=== PATIENT | male | born 1970 | race Caucasian/White ===

== ENCOUNTER 2019-12-11 12:25 | Emergency (ER) | payer OTHER, SELFPAY ==
--- NOTE | ~2019-12-11 | XR_ITS ---
XR shoulder LT min 2V DATE: 12/11/2019 13:48 INDICATION: Injury. Anterior left shoulder pain. TECHNIQUE: 4 views COMPARISON: 03/04/2016 left shoulder FINDINGS: No fracture or dislocation, periosteal reaction or bone destruction or abnormal soft tissue calcification. Normal alignment at the left acromioclavicular and glenohumeral joints. IMPRESSION: Negative Reviewed, dictated and finalized at location A. IMPRESSION: Negative
[2019-12-11 12:32] VITALS: BP 154/84; PULSE 102; RESP 16; TEMP 36.6; O2SAT 98
--- NOTE | 2019-12-11 12:58 | ED.UPPEXIN ---
HPI - Extremity Injury (Upper) General Chief Complaint: Extremity Injury, Upper Stated Complaint: hurt my shoulder Time Seen by Provider: 12/11/19 12:54 Source: patient Mode of arrival: ambulatory Limitations: no limitations History of Present Illness HPI narrative: Patient is a 49-year-old male who presents for evaluation of left shoulder pain. Patient states he was changing out some wires when he pulled, and felt a popping sensation in his left shoulder. Pain was immediate in the left shoulder, sharp, shooting in nature. Patient denies numbness. He reports pain with movement to the side. No bruising. He denies hand numbness. Patient is right-hand dominant. Patient has a history of left shoulder rotator cuff injury in the past which she did physical therapy for. Patient states injury feels similar. Related Data Allergies Allergy/AdvReac Type Severity Reaction Status Date / Time No Known Allergies Allergy Verified 12/11/19 12:41 Review of Systems Review of Systems: Narrative: CONSTITUTIONAL: Denies fever CARDIOVASCULAR: Denies chest pain RESPIRATORY: Denies cough or dyspnea. GASTROINTESTINAL: Denies abdominal pain SKIN: Denies rash MUSCULOSKELETAL: Denies back pain, reports left shoulder pain NEUROLOGIC: Denies headache [facility] Past Medical History Medical History (Updated 12/11/19 @ 14:10 by Danuta Duenas MD) Diabetes Injury of left rotator cuff Family History Family History (Updated 02/12/16 @ 13:08 by DOCTOR UNKNOWN) Other Diabetes mellitus Family history of cardiovascular disease Social History Social History Smoking status: Never smoker Alcohol intake: current Gender identity (if verbalized by the patient): Male Exam Narrative: Exam Narrative: GENERAL: Awake, alert, conversant HEAD: Normocephalic, atraumatic. EYES: PERRLA and EOMI. ENT: Nares clear, no rhinorrhea or epistaxis. Mucous membranes moist. NECK: Supple. CHEST: No respiratory distress, breathing even and non labored HEART: Regular rate, sinus rhythm ABDOMEN:Non distended, non tender EXTREMITIES: Intact sensation over the left deltoid. No tenderness over the clavicle or trapezius. No deformity or squaring off of the shoulder. Patient with pain with abduction. Patient with active abduction to 45 degrees. Radial pulse 2+. Intact sensation median, ulnar, radial nerve distribution. Full flexion and extension of the left shoulder. SKIN: Warm, dry, no rash. NEURO:No focal deficits. Alert and oriented x3 Course Vital Signs Vital signs: Vital Signs Temperature 36.6 C 12/11/19 12:32 Pulse Rate 102 H 12/11/19 12:32 Respiratory Rate 16 12/11/19 12:32 Blood Pressure 154/84 H 12/11/19 12:32 Pulse Oximetry 98 12/11/19 12:32 Temperature 36.6 C 12/11/19 12:32 Pulse Rate 102 H 12/11/19 12:32 Respiratory Rate 16 12/11/19 12:32 Blood Pressure 154/84 H 12/11/19 12:32 Pulse Oximetry 98 12/11/19 12:32 MDM - Extremity Injury (Upper) MDM Narrative Medical decision making narrative: Patient with injury to the left shoulder, pain after working with some wires outside to get some tension, felt a popping sensation in his shoulder. Presented neurovascularly intact. Pain with active abduction. No osseous injury on imaging. Patient most likely with recurrent rotator cuff injury. Advised active range of motion exercises, ibuprofen, Tylenol, primary care physician as well as orthopedic follow-up, he may require physical therapy referral. Patient then discharged home. Differential Diagnosis Differential diagnosis: Likely dislocation of shoulder and other (Rotator cuff injury) Imaging Data Radiologist's impression: ITS Impressions Shoulder X-Ray 12/11/19 13:51 IMPRESSION: Negative Discharge Plan Discharge Clinical Impression: Left shoulder strain Qualifiers: Encounter type: initial encounter Qualified Code(s): S46.912A - S
[2019-12-11] MEDS: ACETAMINOPHEN 500 MG TABLET 1000 MG PO (13:39)
[2019-12-11] MEDS: KETOROLAC (*BKC) 60 MG/2 ML VIAL 30 MG IM (13:39)
== END 2019-12-11 14:29 | disposition home or self-care (01) ==
PROVIDERS: Emergency Provider Emergency Medicine
DX: S46.912A Strain of unspecified muscle, fascia and tendon at shoulder and upper arm level, left arm, initial encounter (principal); E11.9 Type 2 diabetes mellitus without complications; X50.9XXA Other and unspecified overexertion or strenuous movements or postures, initial encounter
CPT/HCPCS: 73030; 96372; 99283; A9270; J1885

== ENCOUNTER 2019-12-26 16:30 | Outpatient (CLI) | payer OTHER, SELFPAY ==
--- NOTE | ~2019-12-26 | MR_ITS ---
EXAMINATION: MR shoulder LT wo con DATE: 12/26/2019 17:28 INDICATION: Left shoulder pain. TECHNIQUE: Magnetic resonance imaging (MRI) of the left shoulder was performed without intravenous co ntrast. Sequences included axial PD-weighted FS FSE, coronal oblique PD-weighted FS FSE and T2-weight ed FS FSE, and sagittal oblique T2-weighted FS FSE and T1-weighted FSE. COMPARISON: Left shoulder radiographs 12/11/2019 FINDINGS: Coracoacromial arch: The acromion undersurface is curved in morphology (type II). There is moderate acromioclavicular join t osteoarthritis including inferiorly directed osteophytes. There is mild subacromial/subdeltoid burs itis. Rotator cuff: There is an interstitial tear of supraspinatus tendon at its distal insertion measuring 7 mm anterior to posterior by 4 mm proximal to distal by 40% tendon thickness. There is an articular-sided partial -thickness tear of infraspinatus tendon measuring 7 mm anterior to posterior by 3.0 cm proximal to di stal by 20% tendon thickness. Teres minor tendon is normal. There is mild subscapularis tendinopathy. There is no asymmetric fatty atrophy of the rotator cuff muscle bellies. Biceps tendon and glenoid labrum: Biceps tendon is in bicipital groove. Intra-articular biceps tendon is normal. There is a tear of sup erior labrum from 10:00 to 12:00 (SLAP tear). Fluid: There is no glenohumeral joint effusion. Bones/cartilage: Glenoid cartilage is normal. Humeral head cartilage is normal. IMPRESSION: 1. Partial-thickness tears of supraspinatus and infraspinatus tendons. 2. SLAP tear. 3. Moderate acromioclavicular joint osteoarthritis. Reviewed, dictated and finalized at location B.
== END 2019-12-26 16:31 | disposition home or self-care (01) ==
PROVIDERS: PCP Orthopaedic Surgery; Visit Provider Orthopaedic Surgery
DX: M19.012 Primary osteoarthritis, left shoulder (principal); S43.432A Superior glenoid labrum lesion of left shoulder, initial encounter; X58.XXXA Exposure to other specified factors, initial encounter
CPT/HCPCS: 73221

== ENCOUNTER 2023-06-23 08:22 | Inpatient (IN) | payer OTHER, SELFPAY ==
--- NOTE | ~2023-06-23 | US_ITS ---
EXAMINATION: US arterial ankle brachial ind DATE: 06/24/2023 14:55 INDICATION: Claudication. Foot ulcer. TECHNIQUE: Segmental pressures and plethysmographic and Doppler waveforms of the brachial and lower e xtremity arteries were obtained. COMPARISON: None. FINDINGS: Right and left brachial artery pressures of 136 mm Hg and 139 mm Hg, respectively, are concordant (no rmal difference <= 30 mmHg). The right ankle-brachial index (SRINIVASAN) is 1.13 (normal >= 0.9-1.0). The right great toe-brachial index (TBI) is 0.70 (normal >= 0.65). Arterial Doppler waveforms are biphasic in posterior tibial artery an d triphasic in dorsalis pedis. The left SRINIVASAN is 1.11. The left TBI is 0.57. Arterial Doppler waveforms are triphasic in posterior tib ial artery and biphasic in dorsalis pedis. IMPRESSION: 1. Mildly decreased left TBI and normal left SRINIVASAN, consistent with left-sided arterial occlusive disea se. Reviewed, dictated and finalized at location E. TITY MANAGEMENT DEVELOPER IMPRESSION: 1. Mildly decreased left TBI and normal left SRINIVASAN, consistent with left-sided ar terial occlusive disease.
--- NOTE | ~2023-06-23 | XR_ITS ---
EXAMINATION: XR toe 2nd LT min 2V INDICATION: Infection and ulceration of the left second toe TECHNIQUE: Three views of the left second toe are obtained. COMPARISON: None available FINDINGS: There is soft tissue ulceration at the dorsal aspect of the second toe. There is soft tissu e swelling of the second toe. Osteopenia and mild fragmentation are noted in the tuft of the second d istal phalanx. There is mild osteoarthritis of multiple interphalangeal joints.. IMPRESSION: 1. Soft tissue ulceration of the second toe with findings consistent with osteomyelitis of the second distal phalanx. Reviewed, dictated and finalized at location B. ALLMENT DEALER IMPRESSION: 1. Soft tissue ulceration of the second toe with findings consistent with osteo myelitis of the second distal phalanx.
[2023-06-23 08:29] VITALS: BP 157/62; PULSE 92; RESP 16; O2SAT 99
--- NOTE | 2023-06-23 08:38 | ED.EXTPRO ---
HPI - Extremity Problem General Chief complaint: Extremity Problem,Nontraumatic Stated complaint: L FOOT SWELLING/PAIN Time Seen by Provider: 06/23/23 08:31 History of Present Illness HPI Narrative: Patient is a 52-year-old male who presents the ER with infection to the left 2nd toe. He removed a fungal toenail from the toe 3 days ago. He then started developing redness and swelling of the foot over last couple days and has some streaking towards ankle. No fevers or chills or sweats. He is diabetic and has peripheral neuropathy. He has not noted any drainage. Related Data Home Medications Medication Instructions Recorded Confirmed atorvastatin 40 mg tablet 40 mg PO DAILY 06/23/23 06/23/23 empagliflozin 25 mg tablet 25 mg PO DAILY 06/23/23 06/23/23 (Jardiance) gabapentin 600 mg tablet 600 mg PO HS 06/23/23 06/23/23 lisinopril 10 mg tablet 10 mg PO DAILY 06/23/23 06/23/23 metformin 1,000 mg tablet 1,000 mg PO BID 06/23/23 06/23/23 omeprazole 40 mg capsule,delayed 40 mg PO AC 06/23/23 06/23/23 release tirzepatide 15 mg/0.5 mL 15 mg subcut WEEKLY 06/23/23 06/23/23 subcutaneous pen injector (Paulinounsarahro) Allergies Allergy/AdvReac Type Severity Reaction Status Date / Time No Known Allergies Allergy Verified 06/23/23 08:38 Review of Systems Review of Systems: All systems reviewed & are unremarkable except as noted in HPI and below Constitutional: Constitutional: Denies chills, Denies fatigue and Denies fever(s) ENT: Reports system reviewed and no additional complaints, except as documented Cardiovascular: Cardiovascular: Reports no additional cardiovascular complaints Respiratory: Respiratory: Reports no additional respiratory complaints Gastrointestinal: Gastrointestinal: Reports no additional gastrointestinal complaints Musculoskeletal: Musculoskeletal: Denies arthralgias and Denies joint swelling Comments: Swollen left 2nd toe Integumentary/Breasts: Skin/Breast: Denies pruritus, Reports erythema and Denies rash PMFSH Past Medical History Medical History (Updated 06/23/23 @ 18:45 by Je Gaytan MD) Diabetic peripheral neuropathy Hyperlipidemia Hypertension Tobacco dependence Type 2 diabetes mellitus Family History Family History Other Diabetes mellitus Family history of cardiovascular disease Heart disease Hypertension Social History Social History (Updated 06/23/23 @ 13:31 by Yasemin Avalos PA-C) Social History: Surrogate medical decision maker: Mallory Marin, spouse. Code status: Full code. Smoking status: Current some day smoker Tobacco type: cigarettes Alcohol intake: never Substance use: never Do You Feel Safe in your Home?: Yes Lack of Transportation: No Lack of Food: Never True Current Housing: I Have Housing Concerned About Future Housing: No Difficulty Paying Gas/Electric Bills: No Difficulty Paying for Meds: No Currently Unemployed: No Education: Associate Degree Difficulty w/ Childcare or Family Care: No Living arrangements: with family Occupation/Education: occupation Spiritual care concerns: No Exam Narrative: GENERAL: Well-appearing, well-nourished, and in no acute distress. HEAD: Normocephalic, atraumatic. ENT: Mucous membranes moist. CHEST: Clear to auscultation. No respiratory distress. HEART: Regular rate and rhythm. Normal peripheral pulses. EXTREMITIES: Normal range of motion. No edema. SKIN: Warm, dry. cellulitis to the 2nd digit left foot with streaking over the dorsal aspect of the foot towards the ankle. There is a scabbed over area that may represent early dry gangrene. There is no purulent drainage. NEURO: Alert and oriented x3. PSYCH: Normal mood and affect. Course Course Emergency Course: Admit to hospitalist service for diabetic ulcer and osteomyelitis. IV antibiotics ordered. Accepted by hospitalist service.
[2023-06-23 09:13] LABS: Basophils Absolute Auto 0.1 K/mm3 (0.0-0.1); Basophils Percent Auto 0.4 % (0.2-1.2); Eosinophils Absolute Auto 0.2 K/mm3 (0-0.3); Eosinophils Percent Auto 1.7 % (0-4.4); Hematocrit 44.6 % (42.0-52.0); Hemoglobin 14.3 g/dL (14.0-18.0); Immature Granulocyte Absolute 0.06 K/mm3 (0.00-0.031); Immature Granulocyte Percent A 0.5 % (0-0.5); Lymphocytes Absolute Auto 1.98 K/mm3 (0.9-3.2); Lymphocytes Percent Auto 16.5 % (18.3-44.2); Mean Corpuscular HGB Conc 32.1 g/dl (32-36); Mean Corpuscular Hemoglobin 30.4 pg (26-34); Mean Corpuscular Volume 94.7 fl (80-100); Mean Platelet Volume 11.3 fl (7.4-10.4); Monocytes Absolute Auto 1.3 K/mm3 (0.1-0.6); Neutrophils Absolute Auto 8.4 K/mm3 (1.3-6.7); Neutrophils Percent Auto 69.9 % (45.5-73.1); Platelet Count Result 230 k/mm3 (150-375); Red Blood Count 4.71 M/mm3 (4.6-6.20); Red Cell Distribution Width 13.1 % (11.5-14.5)
[2023-06-23 09:28] LABS: Alanine Aminotransferase 28 U/L (6-50); Albumin Level 4.2 g/dL (3.5-5.1); Alkaline Phosphatase 139 U/L (38-126); Anion Gap 8 mmol/L (8-16); Aspartate Amino Transferase 31 U/L (17-59); Bilirubin,Total 0.9 mg/dL (0.2-1.3); Blood Urea Nitrogen 13 mg/dL (9-20); CRP 3.5 mg/dL (<1.0); Calcium 9.3 mg/dL (8.4-10.2); Carbon Dioxide 27 mmol/L (22-30); Chloride 102 mmol/L (98-107); Estimated CRCL calculation 183 ml/min; Estimated Glomerular Filt Rate > 60; Glucose 176 mg/dL (65-110); Potassium 3.9 mmol/L (3.4-5.0); Sodium 137 mmol/L (137-145)
[2023-06-23 09:51] LABS: Erythrocyte Sedimentation Rate 15 mm/hr (0-20)
[2023-06-23] MEDS: CEFEPIME 2 GM/NS 50 ML 2 GM/50 ML BAG IVPB ×2 (10:14→21:19)
[2023-06-23 10:18] VITALS: BP 154/84; PULSE 90; RESP 16; O2SAT 98
[2023-06-23] MEDS: metroNIDAZOLE 500 MG/ISO 100ML 500 MG/100 ML BAG 100 MG IVPB ×3 (10:54→21:19)
[2023-06-23] MEDS: VANCOMYCIN 1,250 MG/NS 250 ML 1,250 MG/250 ML BAG 166.67 MG IVPB ×2 (11:55→14:18)
[2023-06-23 12:08] VITALS: BMI 34.1
--- NOTE | 2023-06-23 12:10 | ADMGEN ---
This patient, Kyle Marin, was admitted to [facility] Surg Room 330-02 at 1205. Patient/family oriented to hospital policies and general routines including ID bracelet, bed and alarms, visiting hours, pain management, procedures, bathroom and other care routines, personal items, smoking policy, room service/diet, and visiting hours. Information on how to activate the Rapid Response Team has been discussed. Patient/Family are encouraged to report perceived risks to care and to ask questions if they do not understand what they are told or what they should do.
--- NOTE | 2023-06-23 13:28 | PM.IMHP ---
H&P: HPI History of Present Illness Date/Time: 06/23/23 13:25 Chief Complaint: Pain and swelling in left foot. Narrative: This is a 52-year-old male smoker with type 2 diabetes mellitus, diabetic peripheral neuropathy, hypertension, and hyperlipidemia who presented to the emergency department via private vehicle for evaluation pain and swelling in the left foot. The patient provides the following history. Several days ago he removed his left 3rd toenail which sounds as though had become from the nail plate due to fungus. Over last couple of days he has developed redness and swelling around the nail bed which is now extending onto the foot towards the ankle. He has not noticed any drainage from the wound. Due to his neuropathy he has no pain. He denies fever, chills, and sweats. No history of multidrug resistant organisms. In the ED: He was afebrile on arrival with stable vital signs. Labs were significant for WBC count of 12.0, glucose 176, hemoglobin A1c 6.7%, CRP 3.5. X-ray of the toe showed soft tissue ulceration with findings consistent with osteomyelitis of the distal phalanx. He was started on vancomycin, cefepime, and metronidazole he is being admitted in this setting for further treatment. Review of Systems Review of Systems: Twelve systems were reviewed and are negative except for as per HPI. [facility] Past Medical History Medical History (Updated 06/23/23 @ 22:42 by Yasemin Avalos PA-C) Diabetic peripheral neuropathy Hyperlipidemia Hypertension Tobacco dependence Type 2 diabetes mellitus Surgical History Surgical History (Updated 06/23/23 @ 22:37 by Yasemin Avalos PA-C) No history of previous surgery Family History Family History Other Diabetes mellitus Family history of cardiovascular disease Heart disease Hypertension Social History Social History Social History: Surrogate medical decision maker: Mallory Pinoarrell, spouse. Code status: Full code. Smoking status: Current some day smoker Tobacco type: cigarettes Alcohol intake: never Substance use: never Do You Feel Safe in your Home?: Yes Lack of Transportation: No Lack of Food: Never True Current Housing: I Have Housing Concerned About Future Housing: No Difficulty Paying Gas/Electric Bills: No Difficulty Paying for Meds: No Currently Unemployed: No Education: Associate Degree Difficulty w/ Childcare or Family Care: No Living arrangements: with family Occupation/Education: occupation Spiritual care concerns: No Meds Home Medications and Allergies Home Medications Medication Instructions Recorded Confirmed Type atorvastatin 40 mg tablet 40 mg PO DAILY 06/23/23 06/23/23 History empagliflozin 25 mg tablet 25 mg PO DAILY 06/23/23 06/23/23 History (Jardiance) gabapentin 600 mg tablet 600 mg PO HS 06/23/23 06/23/23 History lisinopril 10 mg tablet 10 mg PO DAILY 06/23/23 06/23/23 History metformin 1,000 mg tablet 1,000 mg PO BID 06/23/23 06/23/23 History omeprazole 40 mg capsule,delayed 40 mg PO AC 06/23/23 06/23/23 History release tirzepatide 15 mg/0.5 mL 15 mg subcut WEEKLY 06/23/23 06/23/23 History subcutaneous pen injector (Gabbi) Allergies Allergy/AdvReac Type Severity Reaction Status Date / Time No Known Allergies Allergy Verified 06/23/23 08:38 Vital Signs Vital Signs - 24 hr 06/23/23 08:29 06/23/23 10:18 Pulse Rate 92 90 Respiratory Rate 16 16 Blood Pressure 157/62 H 154/84 H Pulse Oximetry 99 98 Exam Narrative: General: Well-developed, nontoxic-appearing male sitting up in bed. Weight: 134 kg. BMI: 34.1. HEENT: PERRL, EOMI. Sclera anicteric. Oral mucosa moist. Neck: Supple. Respiratory: Lungs are clear to auscultation bilaterally. Cardiovascular: Regular rate and rhythm with S1-S2. Gastrointestinal: Abdome
[2023-06-23 14:00] VITALS: BP 117/56; PULSE 76; RESP 16; TEMP 36.4; O2SAT 100
[2023-06-23 14:47] LABS: Hemoglobin A1C 6.7 % (<5.7)
[2023-06-23 16:44] LABS: Glucose Point of Care 130 mg/dl (65-105)
[2023-06-23 20:39] LABS: Glucose Point of Care 137 mg/dl (65-105)
[2023-06-23 22:00] VITALS: BP 130/69; PULSE 85; RESP 16; TEMP 36.7; O2SAT 97
[2023-06-23] MEDS: VANCOMYCIN 1,500 MG/NS 500 ML 1,500 MG/500 ML BAG 250 MG IVPB (23:10)
[2023-06-24] MEDS: HYDROcodone/acetaminophen (*CRX) 5-325 MG TABLET 1 TAB PO ×2 (01:08→16:25)
[2023-06-24 05:53] LABS: Mean Corpuscular HGB Conc 31.7 g/dl (32-36); Mean Corpuscular Hemoglobin 30.4 pg (26-34); Mean Corpuscular Volume 95.8 fl (80-100); Mean Platelet Volume 10.7 fl (7.4-10.4); Platelet Count Result 174 k/mm3 (150-375); Red Blood Count 4.28 M/mm3 (4.6-6.20); White Blood Count 7.7 K/mm3 (4.5-10.0)
[2023-06-24 06:00] VITALS: BP 118/64; PULSE 81; RESP 16; TEMP 36.2; O2SAT 96
[2023-06-24 06:05] LABS: Anion Gap 5 mmol/L (8-16); Blood Urea Nitrogen 16 mg/dL (9-20); Calcium 8.4 mg/dL (8.4-10.2); Carbon Dioxide 27 mmol/L (22-30); Chloride 103 mmol/L (98-107); Estimated CRCL calculation 183 ml/min; Estimated Glomerular Filt Rate > 60; Glucose 120 mg/dL (65-110); Magnesium 2.1 mg/dL (1.6-2.3); Potassium 3.7 mmol/L (3.4-5.0); Sodium 135 mmol/L (137-145)
[2023-06-24] MEDS: metroNIDAZOLE 500 MG/ISO 100ML 500 MG/100 ML BAG 100 MG IVPB ×3 (07:02→21:00)
[2023-06-24 07:59] LABS: Glucose Point of Care 132 mg/dl (65-105)
--- NOTE | 2023-06-24 08:48 | PM.CNGS ---
Assessment and Plan Assessment and plan (1) Diabetic infection of left foot: Code(s): E11.628 - Type 2 diabetes mellitus with other skin complications; L08.9 - Local infection of the skin and subcutaneous tissue, unspecified Status: Acute Assessment and Plan: Patient presents with an infected diabetic left 2nd toe ulcer. X-rays show evidence of osteomyelitis in the left 2nd distal phalanx, which corresponds with the open ulcer that probes to bone. I will also order arterial dopplers to evaluate for arterial disease. Discussed nonoperative and surgical treatment options in detail with the patient. Also discussed the case with Dr. Grant, who recommends proceeding with a left 2nd toe amputation. Description of the procedure, risks, benefits, alternatives, and expected outcomes were discussed with the patient in detail. The patient agrees with proceeding with surgery. Will continue broad-spectrum IV antibiotics. (2) Osteomyelitis of second toe of left foot: Code(s): M86.9 - Osteomyelitis, unspecified Status: Acute Assessment and Plan: X-rays showed evidence of osteomyelitis in the left 2nd distal phalanx. Continue IV antibiotics. See plan above. (3) Type 2 diabetes mellitus: Code(s): E11.9 - Type 2 diabetes mellitus without complications Status: Acute Assessment and Plan: His hemoglobin A1C on admission was 6.7. Discussed the importance of glycemic control in this setting and for healing. Management per Hospitalist. (4) Diabetic peripheral neuropathy: Code(s): E11.42 - Type 2 diabetes mellitus with diabetic polyneuropathy Status: Acute (5) Hypertension: Code(s): I10 - Essential (primary) hypertension Status: Acute (6) Hyperlipidemia: Code(s): E78.5 - Hyperlipidemia, unspecified Status: Acute Plan I have discussed the patient's case and plan of care with Dr. Grant. Thank you for allowing us to see the patient in consultation and we will continue to follow along with you. History of Present Illness Consult details Consult date: 06/24/23 Reason for consult: other (Left 2nd toe wound/osteomyelitis) Requesting physician: Yasemin Avalos PA-C Narrative: This is a 52-year-old man with type 2 diabetes mellitus, diabetic peripheral neuropathy, hypertension, and hyperlipidemia, who we have been asked to see in consultation for a 2nd left toe wound and osteomyelitis. He presented to the ER yesterday with complaints of pain and swelling in his left foot. He reports removing his left 2nd toenail several days ago that he thought had a fungal infection. Over the past few days, he began to develop redness and swelling around the nail bed and extending onto the foot. Denies any drainage, fever, chills. Workup in the ER showed a WBC count of 12,000, glucose 176, hgb A1C 6.7, CRP 3.5. He was afebrile. X-rays of the left 2nd toe showed soft tissue ulceration of the second toe with findings consistent with osteomyelitis of the 2nd distal phalanx. He was admitted to the Hospitalist service. Wound care was consulted. He was started on broad-spectrum IV antibiotics and and local wound care with silver gel dressing changes. He is now seen on the medical floor. He denies any pain due to his neuropathy. Denies a history of any foot infections or foot surgeries. Review of Systems Review of Systems: All systems reviewed & are unremarkable except as noted in HPI and below Constitutional: Constitutional: Reports no additional constitutional complaints, Denies chills, Denies fatigue and Denies fever(s) Eyes: Eyes: Reports no additional eye complaints ENT: Reports system reviewed and no additional complaints, except as documented and Denies dizziness Cardiovascular: Cardiovascular: Reports no additional cardiovascular complaints, Denies chest pain and Denies leg edema Respiratory: Respiratory: Reports no additional respiratory complaints, Denies cough and Denies dyspnea Gastrointes
[2023-06-24] MEDS: PANTOPRAZOLE 40 MG TABLET PO ×2 (10:01→20:22)
[2023-06-24] MEDS: CEFEPIME 2 GM/NS 50 ML 2 GM/50 ML BAG IVPB ×2 (10:01→20:25)
[2023-06-24] MEDS: lisinopriL 10 MG TABLET PO (10:02)
[2023-06-24] MEDS: EMPAGLIFLOZIN 25 MG TABLET PO (10:02)
[2023-06-24] MEDS: ATORVASTATIN 40 MG TABLET PO (10:02)
[2023-06-24] MEDS: metFORMIN HCL 500 MG TABLET 1000 MG PO ×2 (10:02→17:19)
--- NOTE | 2023-06-24 11:45 | PM.IMPN ---
Progress Note: A&P Assessment and Plan (1) Osteomyelitis of second toe of left foot: Code(s): M86.9 - Osteomyelitis, unspecified Status: Acute Assessment and Plan: As evidenced by imaging. Left second toe Surgery consulted and managing w/hospitalist service Continue IV abx of Vancomycin, Cefepime and Flagyl. Not meeting sepsis criteria Preliminary blood cultures are negative for any growth. Continue to trend to completion Definitive treatment for pt will depend upon what he decides to do with surgery. Check SRINIVASAN's due to decreased posterior tibial pulse. Continue wound orders of daily dressing with Silver gel and sterile dressing. (2) Diabetic infection of left foot: Code(s): E11.628 - Type 2 diabetes mellitus with other skin complications; L08.9 - Local infection of the skin and subcutaneous tissue, unspecified Status: Acute Assessment and Plan: See #1 (3) Cellulitis of left foot: Code(s): L03.116 - Cellulitis of left lower limb Status: Acute Assessment and Plan: See #1 (4) Type 2 diabetes mellitus: Code(s): E11.9 - Type 2 diabetes mellitus without complications Status: Chronic Assessment and Plan: Hgb A1C is 6.7 Continue SSI for tighter glucose control. Continue Jardiance and Metformin. Diabetic diet Continue hypoglycemic protocol. Glucose checks AC and HS. (5) Diabetic peripheral neuropathy: Code(s): E11.42 - Type 2 diabetes mellitus with diabetic polyneuropathy Status: Chronic Assessment and Plan: Continue Gabapentin (6) Hypertension: Code(s): I10 - Essential (primary) hypertension Status: Chronic Assessment and Plan: Stable BP. Continue home meds of Lisinopril and trend VS. (7) Hyperlipidemia: Code(s): E78.5 - Hyperlipidemia, unspecified Status: Chronic Assessment and Plan: Continue home medicine of Lipitor 40 mg po daily. (8) Tobacco dependence: Code(s): F17.200 - Nicotine dependence, unspecified, uncomplicated Status: Resolved Assessment and Plan: Pt reportedly has not smoked in 20+ years. 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 General surgery has consulted and will be co-managing. Pt has been started on Vancomycin, Cefepime, and Flagyl. Options were discussed with pt by surgery about how to proceed, but he has not yet made a decision. He denies any pain in the affected area due to peripheral neuropathy or anywhere else. Review of Systems Review of Systems: All systems reviewed & are unremarkable except as noted in HPI and below Exam Narrative: CONSTITUTIONAL: Pleasant, obese male pt with very flat and depressed affect lying supine in bed at this time in no acute distress. HEENT: Head is atraumatic and normocephalic with patent oropharynx EYES: PERRLA, EOM's intact NECK: Supple, FROM without LN or JVD RESPIRATORY: CTAB in all chappell CARDIO: RRR, S1 and S2 present without S3, S4, m,r,g,h or displacement of PMI. GI: Soft, NT, with Bowel sounds present in all four quadrants SKIN: Left second toe with ulcer at the distal toe with area of necrosis, to the bone. No drainage. There is redness and warmth extending up the affected toe onto the top of the foot. EXTREMITIES: BLE edema of the bilateral feet and lower extremities. Pt with 2+ Pedal pulses in affected foot and faint palpable Posterior Tibial pulse in affected foot. NEURO: Non-focal exam and findings. No feeling in feet, secondary to PN. PSYCH: Flat and depressed affect. Objective Data Vital Signs Vital Signs: Vital Signs - 24 hr 06/23/23 14:00 06/23/23 22:00 06/23/23 20:00 Temperature
[2023-06-24 12:10] LABS: Glucose Point of Care 132 mg/dl (65-105)
[2023-06-24] MEDS: VANCOMYCIN 1,500 MG/NS 500 ML 1,500 MG/500 ML BAG 250 MG IVPB (13:47)
[2023-06-24 14:00] VITALS: BP 130/40; PULSE 84; RESP 18; TEMP 37; O2SAT 97
[2023-06-24 16:45] LABS: Glucose Point of Care 110 mg/dl (65-105)
[2023-06-24] MEDS: GABAPENTIN 300 MG CAPSULE 600 MG PO (20:20)
[2023-06-24 20:41] LABS: Glucose Point of Care 125 mg/dl (65-105)
[2023-06-24 21:04] VITALS: BP 119/62; PULSE 80; RESP 18; TEMP 36.7; O2SAT 96
[2023-06-24 23:04] LABS: Vancomycin Trough 11.1 ug/mL (10.0-20.0)
[2023-06-25] VITALS (10 sets, daily range): BP systolic 107–135; BP diastolic 54–72; PULSE 77–91; RESP 14–20; TEMP 36.1–36.6; O2SAT 95–100
[2023-06-25] MEDS: VANCOMYCIN 2,000 MG/NS 500 ML 2,000 MG/500 ML BAG 250 MG IVPB ×3 (00:05→23:22)
[2023-06-25] MEDS: metroNIDAZOLE 500 MG/ISO 100ML 500 MG/100 ML BAG 100 MG IVPB ×3 (05:15→20:40)
[2023-06-25 06:19] LABS: Basophils Percent Auto 0.4 % (0.2-1.2); Eosinophils Absolute Auto 0.2 K/mm3 (0-0.3); Hematocrit 40.4 % (42.0-52.0); Hemoglobin 12.6 g/dL (14.0-18.0); Immature Granulocyte Absolute 0.04 K/mm3 (0.00-0.031); Immature Granulocyte Percent A 0.5 % (0-0.5); Lymphocytes Absolute Auto 1.43 K/mm3 (0.9-3.2); Mean Corpuscular HGB Conc 31.2 g/dl (32-36); Mean Corpuscular Hemoglobin 30.7 pg (26-34); Mean Corpuscular Volume 98.3 fl (80-100); Monocytes Absolute Auto 0.9 K/mm3 (0.1-0.6); Monocytes Percent Auto 11.3 % (2.6-8.5); Neutrophils Percent Auto 66.8 % (45.5-73.1); Platelet Count Result 193 k/mm3 (150-375); Red Blood Count 4.11 M/mm3 (4.6-6.20); White Blood Count 7.5 K/mm3 (4.5-10.0)
[2023-06-25 06:29] LABS: Alanine Aminotransferase 20 U/L (6-50); Albumin Level 3.6 g/dL (3.5-5.1); Alkaline Phosphatase 105 U/L (38-126); Anion Gap 4 mmol/L (8-16); Aspartate Amino Transferase 21 U/L (17-59); Bilirubin,Total 0.5 mg/dL (0.2-1.3); Blood Urea Nitrogen 16 mg/dL (9-20); Calcium 8.4 mg/dL (8.4-10.2); Carbon Dioxide 25 mmol/L (22-30); Chloride 105 mmol/L (98-107); Estimated CRCL calculation 184 ml/min; Estimated Glomerular Filt Rate > 60; Glucose 112 mg/dL (65-110); Magnesium 1.9 mg/dL (1.6-2.3); Potassium 3.9 mmol/L (3.4-5.0); Sodium 134 mmol/L (137-145)
[2023-06-25 06:30] LABS: Prothrombin Time 13.8 Seconds (11.1-14.7)
[2023-06-25 08:02] LABS: Glucose Point of Care 104 mg/dl (65-105)
[2023-06-25] MEDS: CEFEPIME 2 GM/NS 50 ML 2 GM/50 ML BAG IVPB ×2 (08:19→20:05)
[2023-06-25] MEDS: metFORMIN HCL 500 MG TABLET 1000 MG PO ×2 (08:21→17:19)
[2023-06-25] MEDS: lisinopriL 10 MG TABLET PO (08:21)
[2023-06-25] MEDS: EMPAGLIFLOZIN 25 MG TABLET PO (08:21)
[2023-06-25] MEDS: ATORVASTATIN 40 MG TABLET PO (08:21)
[2023-06-25] MEDS: PANTOPRAZOLE 40 MG TABLET PO ×2 (08:21→20:02)
--- NOTE | 2023-06-25 10:48 | WPDANESEPPF ---
Anes - Initial Pre Proc Eval Procedure: Operation Date: 06/25/23 12:00 Proposed Procedures p Left Second Toe Amputation - Rodney Plascencia MD Date/Time: 06/25/23 10:48 Surgeon: STACEY Crystal Pre Op Diagnosis: diabetic foot ulcer,osteomyelitis of the toe Patient Data Age: 52 Gender: M Height: 1.98 m Weight: 135.3 kg Last Vital Signs Temp 36.6 C 06/25/23 06:00 Pulse 77 06/25/23 06:00 Resp 16 06/25/23 06:00 BP 121/65 06/25/23 06:00 Pulse Ox 98 06/25/23 06:00 O2 Del Method Room Air 06/25/23 08:20 Allergies Allergy/AdvReac Type Severity Reaction Status Date / Time No Known Allergies Allergy Verified 06/23/23 08:38 Home Medications Medication Instructions Recorded Confirmed Type atorvastatin 40 mg tablet 40 mg PO DAILY 06/23/23 06/23/23 History empagliflozin 25 mg tablet 25 mg PO DAILY 06/23/23 06/23/23 History (Jardiance) gabapentin 600 mg tablet 600 mg PO HS 06/23/23 06/23/23 History lisinopril 10 mg tablet 10 mg PO DAILY 06/23/23 06/23/23 History metformin 1,000 mg tablet 1,000 mg PO BID 06/23/23 06/23/23 History omeprazole 40 mg capsule,delayed 40 mg PO AC 06/23/23 06/23/23 History release tirzepatide 15 mg/0.5 mL 15 mg subcut WEEKLY 06/23/23 06/23/23 History subcutaneous pen injector (Mounjaro) Laboratory Tests 06/24/23 06/24/23 06/24/23 11:42 16:37 20:34 WBC RBC Hgb Hct MCV MCH MCHC RDW Plt Count MPV Immature Gran % (Auto) Neut % (Auto) Lymph % (Auto) [place] % (Auto) Eos % (Auto) Baso % (Auto) Lymph # (Auto) [place] # (Auto) Eos # (Auto) Baso # (Auto) Abs Immat Gran (auto) Absolute Neuts (auto) Absolute Nucleated RBC Nucleated RBC % PT INR APTT Sodium Potassium Chloride Carbon Dioxide Anion Gap BUN Creatinine Estim Creat Clear Calc Estimated GFR Glucose POC Capillary Glucose 132 H mg/dl 110 H mg/dl 125 H mg/dl (65-105) (65-105) (65-105) Calcium Magnesium Total Bilirubin AST ALT Alkaline Phosphatase Total Protein Albumin Vancomycin Trough 06/24/23 06/25/23 06/25/23 22:06 05:36 07:53 WBC 7.5 K/mm3 (4.5-10.0) RBC 4.11 L M/mm3 (4.6-6.20) Hgb 12.6 L g/dL (14.0-18.0) Hct 40.4 L % (42.0-52.0) MCV 98.3 fl (80-100) MCH 30.7 pg (26-34) MCHC 31.2 L g/dl (32-36) RDW 13.0 % (11.5-14.5) Plt Count 193 k/mm3 (150-375) MPV 11.0 H fl (7.4-10.4) Immature Gran % (Auto) 0.5 % (0-0.5) Neut % (Auto) 66.8 % (45.5-73.1) Lymph % (Auto) 19.0 % (18.3-44.2) [place] % (Auto) 11.3 H % (2.6-8.5) Eos % (Auto) 2.0 % (0-4.4) Baso % (Auto) 0.4 % (0.2-1.2) Lymph # (Auto) 1.43 K/mm3 (0.9-3.2) [place] # (Auto) 0.9 H K/mm3 (0.1-0.6) Eos # (Auto) 0.2 K/mm3 (0-0.3) Baso # (Auto) 0.0 K/mm3 (0.0-0.1) Abs Immat Gran (auto) 0.04 H K/mm3 (0.00-0.031) Absolute Neuts (auto) 5.0 K/mm3 (1.3-6.7) Absolute Nucleated RBC 0.0 K/mm3 (0.0-0.012) Nucleated RBC % 0.0 % (0.0-0.2) PT 13.8 Seconds (11.1-14.7) INR 1.0 APTT 38.0 H SECONDS (22.3-36.8) Sodium 134 L mmol/L (137-145) Potassium 3.9 mmol/L (3.4-5.0) Chloride 105 mmol/L (98-107) Carbon Dioxide 25 mmol/L (22-3
[2023-06-25 10:58] LABS: Glucose Point of Care 91 mg/dl (65-105)
[2023-06-25] MEDS: LACTATED RINGERS 1,000 ML 30 ML IV CONT (11:30)
--- NOTE | 2023-06-25 11:44 | WPDHPUPDATE1 ---
History and Physical Update Update Date/Time: 06/25/23 11:44 History and Physical has been reviewed, including an updated exam of the patient. There are NO changes in the patient's condition. Risks, benefits, and alternatives have been discussed and questions answered. Patient agrees to proceed with procedure.
[2023-06-25] MEDS: LIDOCAINE HCL 1% LOCAL INJ 20 ML VIAL INFILTRATE (12:19)
[2023-06-25 12:59] LABS: Glucose Point of Care 82 mg/dl (65-105)
--- NOTE | 2023-06-25 13:33 | P.PNIM_ITS ---
Progress Note: A&P Assessment and Plan (1) Osteomyelitis of second toe of left foot: Code(s): M86.9 - Osteomyelitis, unspecified Status: Acute Assessment and Plan: * As evidenced by imaging. * Left second toe * Surgery consulted and managing w/hospitalist service * Continue IV abx of Vancomycin, Cefepime and Flagyl. * Not meeting sepsis criteria * Preliminary blood cultures are negative for any growth. Continue to trend to completion * Definitive treatment for pt will depend upon what he decides to do with surgery. * Check SRINIVASAN's due to decreased posterior tibial pulse. * Continue wound orders of daily dressing with Silver gel and sterile dressing. * 06/25: OR today for amputation of left second toe. Continuing IV abx of Vanc, Cefepime and Flagyl. BCx2 preliminarily negative for any growth. SRINIVASAN's unremarkable. (2) Diabetic infection of left foot: Code(s): E11.628 - Type 2 diabetes mellitus with other skin complications; L08.9 - Local infection of the skin and subcutaneous tissue, unspecified Status: Acute Assessment and Plan: * See #1 (3) Cellulitis of left foot: Code(s): L03.116 - Cellulitis of left lower limb Status: Acute Assessment and Plan: * See #1 (4) Type 2 diabetes mellitus: Code(s): E11.9 - Type 2 diabetes mellitus without complications Status: Chronic Assessment and Plan: * Hgb A1C is 6.7 * Continue SSI for tighter glucose control. * Continue Jardiance and Metformin. * Diabetic diet * Continue hypoglycemic protocol. * Glucose checks AC and HS. * 06/25: Continue current plan of care and monitoring to ensure healing of surgical wound. (5) Diabetic peripheral neuropathy: Code(s): E11.42 - Type 2 diabetes mellitus with diabetic polyneuropathy Status: Chronic Assessment and Plan: * Continue Gabapentin * 06/25: Continue current treatment. (6) Hypertension: Code(s): I10 - Essential (primary) hypertension Status: Chronic Assessment and Plan: * Stable BP. * Continue home meds of Lisinopril and trend VS. * 06/25: Stable, continue to trend. (7) Hyperlipidemia: Code(s): E78.5 - Hyperlipidemia, unspecified Status: Chronic Assessment and Plan: * Continue home medicine of Lipitor 40 mg po daily. * 2/23: Continue (8) Tobacco dependence: Code(s): F17.200 - Nicotine dependence, unspecified, uncomplicated Status: Resolved Assessment and Plan: * Pt reportedly has not smoked in 20+ years. Time Spent With Patient Time with patient: 15 - 25 minutes Subjective Date/time seen: 06/25/23 1145 Interval history: This pt was examined at the bedside today in interval assessment. He is awaiting surgery for amputation of the left second toe at this time. He has been NPO since MN. He has no new pain or complaints. Preliminary BCx2 are negative thus far and VSS. He continues to receive Cefepime, Vanc and Flagyl. SRINIVASAN's from yesterday were unremarkable ensuring blood flow for healing. Review of Systems Review of Systems: All systems reviewed & are unremarkable except as noted in HPI and below Exam Narrative: CONSTITUTIONAL: Pleasant, obese male pt with very flat and depressed affect lying supine in bed at this time in no acute distress. HEENT: Head is atraumatic and normocephalic with patent oropharynx EYES: PERRLA, EOM's intact NECK: Supple, FROM without LN or JVD RESPIRATORY: CTAB in all chappell CARDIO: RRR, S1 and S2 present without S3, S4, m,r,g,h or displac
--- NOTE | 2023-06-25 13:33 | PM.IMPN ---
Progress Note: A&P Assessment and Plan (1) Osteomyelitis of second toe of left foot: Code(s): M86.9 - Osteomyelitis, unspecified Status: Acute Assessment and Plan: As evidenced by imaging. Left second toe Surgery consulted and managing w/hospitalist service Continue IV abx of Vancomycin, Cefepime and Flagyl. Not meeting sepsis criteria Preliminary blood cultures are negative for any growth. Continue to trend to completion Definitive treatment for pt will depend upon what he decides to do with surgery. Check SRINIVASAN's due to decreased posterior tibial pulse. Continue wound orders of daily dressing with Silver gel and sterile dressing. 06/25: OR today for amputation of left second toe. Continuing IV abx of Vanc, Cefepime and Flagyl. BCx2 preliminarily negative for any growth. SRINIVASAN's unremarkable. (2) Diabetic infection of left foot: Code(s): E11.628 - Type 2 diabetes mellitus with other skin complications; L08.9 - Local infection of the skin and subcutaneous tissue, unspecified Status: Acute Assessment and Plan: See #1 (3) Cellulitis of left foot: Code(s): L03.116 - Cellulitis of left lower limb Status: Acute Assessment and Plan: See #1 (4) Type 2 diabetes mellitus: Code(s): E11.9 - Type 2 diabetes mellitus without complications Status: Chronic Assessment and Plan: Hgb A1C is 6.7 Continue SSI for tighter glucose control. Continue Jardiance and Metformin. Diabetic diet Continue hypoglycemic protocol. Glucose checks AC and HS. 06/25: Continue current plan of care and monitoring to ensure healing of surgical wound. (5) Diabetic peripheral neuropathy: Code(s): E11.42 - Type 2 diabetes mellitus with diabetic polyneuropathy Status: Chronic Assessment and Plan: Continue Gabapentin 06/25: Continue current treatment. (6) Hypertension: Code(s): I10 - Essential (primary) hypertension Status: Chronic Assessment and Plan: Stable BP. Continue home meds of Lisinopril and trend VS. 06/25: Stable, continue to trend. (7) Hyperlipidemia: Code(s): E78.5 - Hyperlipidemia, unspecified Status: Chronic Assessment and Plan: Continue home medicine of Lipitor 40 mg po daily. 06/25: Continue (8) Tobacco dependence: Code(s): F17.200 - Nicotine dependence, unspecified, uncomplicated Status: Resolved Assessment and Plan: Pt reportedly has not smoked in 20+ years. Time Spent With Patient Time with patient: 15 - 25 minutes Subjective Date/time seen: 06/25/23 1145 Interval history: This pt was examined at the bedside today in interval assessment. He is awaiting surgery for amputation of the left second toe at this time. He has been NPO since MN. He has no new pain or complaints. Preliminary BCx2 are negative thus far and VSS. He continues to receive Cefepime, Vanc and Flagyl. SRINIVASAN's from yesterday were unremarkable ensuring blood flow for healing. Review of Systems Review of Systems: All systems reviewed & are unremarkable except as noted in HPI and below Exam Narrative: CONSTITUTIONAL: Pleasant, obese male pt with very flat and depressed affect lying supine in bed at this time in no acute distress. HEENT: Head is atraumatic and normocephalic with patent oropharynx EYES: PERRLA, EOM's intact NECK: Supple, FROM without LN or JVD RESPIRATORY: CTAB in all chappell CARDIO: RRR, S1 and S2 present without S3, S4, m,r,g,h or displacement of PMI. GI: Soft, NT, with Bowel sounds present in all four quadrants SKIN: Left second toe with ulcer at the distal toe with area of necrosis, to the bone. No drainage. There is redness and warmth extending up the affected toe onto the top of the foot. EXTREMITIES: BLE edema of the bilateral feet and lower extremities. Pt with 2+ Pedal pulses in affected foot and faint palpable Posterior Tibial pulse in affected foot. NEURO: Non-focal exam and findings. N
--- NOTE | 2023-06-25 15:41 | P.OP_ITS ---
Procedure Note - Detailed Date of Procedure 06/25/23 Pre-op Diagnosis diabetic foot ulcer,osteomyelitis of the 2nd toe Post-op Diagnosis Same Procedure Performed Partial amputation of left 2nd toe. Surgeon Rodney Plascencia MD Anesthesia MAC and Local Indications Patient is a 52-year-old gentleman who has had a chronic ulcer on the tip of his left 2nd toe. There has been tissue loss and x-ray showed destruction tip of the bone of the left 2nd toe and so he has osteomyelitis. He presents now for petition left 2nd toe due to his osteomyelitis. Findings The ulcer involved only the tip of the left 2nd toe. The bone became normal appearing in the midportion of the toe at the phalanx. Description of Procedure After informed consent was obtained patient brought to the operating room was placed in the supine position and then IV sedation was administered by anesthesia. The left foot was then prepped and draped all the way up to just above the ankle. A time-out was then performed correctly identifying the patient as well as procedure to be performed verifying the site marking. He was already on scheduled IV antibiotics. I 1st started by performing a digital block of the left 2nd toe. 1% lidocaine without epinephrine was then injected around the base of the toe and then deeper on either side of the toe to get a digital nerve block. After this was done I then took a 15 blade scalpel and the n made a circumferential incision around the midportion of the left toe over the phalanx and created a posterior subcutaneous flap with this incision since only the tip of the toe was involved with traction and osteomyelitis. I cut down through the soft tissue and down through the extensor and flexor tendons with a scalpel. Once I reached the shaft of the phalanx I then used a periosteal eleva tor to further dissect the periosteum off of the bone. I then used a bone cutter to divide the 2nd toe phalanx. The distal part of the toe was then sent to pathology for examination. A rongeur was then used to further cut back the end of the bone. There was some bleeding from the flap and tissue which meant that it was viable. hemostasis was achieved incision electrocautery. The and the bone appeared to be healthy. Then proceeded to close the posterior flap over the end of the bone. Interrupted 3-0 Vicryl sutures were used to approximate subcutaneous flap over the bone and then interrupted 3-0 nylon sutures placed in a vertical mattress fashion were used to approximate the skin edges. There was absolutely no tension on the closure. The incision was then cleaned and then Xeroform gauze placed over the suture line. Fluffed 4x4 gauze and Kerlix gauze was then used to dress the foot which was then wrapped with a 4in Aftab wrap. The patient tolerated the procedure well no complications. All sponges, needles, and instrument counts were correct at the end procedure. EBL was _10__cc. The patient was awakened and taken to recovery in stable and satisfactory condition. Implants None Estimated Blood Loss 10 Drains No Packing No Pathology Yes ( tip of the left 2nd toe sent to pathology) Complications No immediate complications Condition Stable Disposition PACU [facility] Billing Surgery - Charge Forward: Surgery Billing
[2023-06-25 16:23] LABS: Glucose Point of Care 158 mg/dl (65-105)
[2023-06-25] MEDS: HYDROcodone/acetaminophen (*CRX) 5-325 MG TABLET 1 TAB PO (17:28)
[2023-06-25 19:44] LABS: Glucose Point of Care 177 mg/dl (65-105)
[2023-06-25] MEDS: GABAPENTIN 300 MG CAPSULE 600 MG PO (20:02)
[2023-06-26] MEDS: metroNIDAZOLE 500 MG/ISO 100ML 500 MG/100 ML BAG 100 MG IVPB ×2 (05:25→12:19)
[2023-06-26 06:00] VITALS: BP 118/63; PULSE 81; RESP 14; TEMP 36.1; O2SAT 96
[2023-06-26] MEDS: HYDROcodone/acetaminophen (*CRX) 5-325 MG TABLET 1 TAB PO ×2 (06:10→10:30)
[2023-06-26 06:18] LABS: Basophils Percent Auto 0.2 % (0.2-1.2); Eosinophils Absolute Auto 0.1 K/mm3 (0-0.3); Eosinophils Percent Auto 1.6 % (0-4.4); Hematocrit 42.6 % (42.0-52.0); Hemoglobin 13.7 g/dL (14.0-18.0); Immature Granulocyte Absolute 0.04 K/mm3 (0.00-0.031); Immature Granulocyte Percent A 0.5 % (0-0.5); Lymphocytes Absolute Auto 1.25 K/mm3 (0.9-3.2); Lymphocytes Percent Auto 14.7 % (18.3-44.2); Mean Corpuscular HGB Conc 32.2 g/dl (32-36); Mean Corpuscular Hemoglobin 30.6 pg (26-34); Mean Corpuscular Volume 95.1 fl (80-100); Mean Platelet Volume 11.1 fl (7.4-10.4); Monocytes Absolute Auto 0.9 K/mm3 (0.1-0.6); Monocytes Percent Auto 10.9 % (2.6-8.5); Neutrophils Absolute Auto 6.1 K/mm3 (1.3-6.7); Neutrophils Percent Auto 72.1 % (45.5-73.1); Platelet Count Result 185 k/mm3 (150-375); Red Blood Count 4.48 M/mm3 (4.6-6.20); Red Cell Distribution Width 12.9 % (11.5-14.5); White Blood Count 8.5 K/mm3 (4.5-10.0)
[2023-06-26 06:36] LABS: Alanine Aminotransferase 24 U/L (6-50); Albumin Level 3.7 g/dL (3.5-5.1); Alkaline Phosphatase 107 U/L (38-126); Anion Gap 6 mmol/L (8-16); Aspartate Amino Transferase 29 U/L (17-59); Bilirubin,Total 0.6 mg/dL (0.2-1.3); Blood Urea Nitrogen 16 mg/dL (9-20); Calcium 8.4 mg/dL (8.4-10.2); Carbon Dioxide 26 mmol/L (22-30); Chloride 103 mmol/L (98-107); Estimated CRCL calculation 184 ml/min; Estimated Glomerular Filt Rate > 60; Glucose 120 mg/dL (65-110); Potassium 3.9 mmol/L (3.4-5.0); Sodium 135 mmol/L (137-145)
[2023-06-26 07:50] LABS: Glucose Point of Care 113 mg/dl (65-105)
[2023-06-26 08:00] VITALS: BP 128/57; PULSE 80; RESP 18; TEMP 36.7; O2SAT 96
[2023-06-26 08:15] VITALS: PULSE 76
[2023-06-26] MEDS: CEFEPIME 2 GM/NS 50 ML 2 GM/50 ML BAG IVPB (08:17)
[2023-06-26] MEDS: metFORMIN HCL 500 MG TABLET 1000 MG PO (08:18)
[2023-06-26] MEDS: PANTOPRAZOLE 40 MG TABLET PO (08:18)
[2023-06-26] MEDS: ATORVASTATIN 40 MG TABLET PO (08:18)
[2023-06-26] MEDS: EMPAGLIFLOZIN 25 MG TABLET PO (08:18)
[2023-06-26] MEDS: lisinopriL 10 MG TABLET PO (08:18)
[2023-06-26 11:28] LABS: Glucose Point of Care 118 mg/dl (65-105)
[2023-06-26 11:42] LABS: Vancomycin Trough 10.9 ug/mL (10.0-20.0)
[2023-06-26 12:00] VITALS: BP 129/60; PULSE 93; RESP 16; TEMP 36.7; O2SAT 98
[2023-06-26] MEDS: VANCOMYCIN 2,000 MG/NS 500 ML 2,000 MG/500 ML BAG 250 MG IVPB (12:20)
--- NOTE | 2023-06-26 13:37 | PM.PNGS ---
Progress Note: A&P Assessment and Plan (1) Diabetic infection of left foot: Code(s): E11.628 - Type 2 diabetes mellitus with other skin complications; L08.9 - Local infection of the skin and subcutaneous tissue, unspecified Status: Acute Assessment and Plan: Doing well on POD#1. Continue IV antibiotics today. OK to discharge tomorrow if continuing to improve. Oral antibiotics should be OK since osteomyelitis was treated with amputation. (2) Osteomyelitis of second toe of left foot: Code(s): M86.9 - Osteomyelitis, unspecified Status: Acute (3) Tobacco dependence: Code(s): F17.200 - Nicotine dependence, unspecified, uncomplicated Status: Resolved (4) Type 2 diabetes mellitus: Code(s): E11.9 - Type 2 diabetes mellitus without complications Status: Chronic Subjective Subjective Date/Time Seen: 06/26/23 13:37 Interval history: Pain controlled. Ambulating with a walker and avoiding forefoot pressure. Exam Extrem: Other: Dressing removed. Mild bruising on plantar surface of second toe. No wound openings or drainage. Objective Data Vital Signs Vital Signs: Vital Signs - 24 hr 06/25/23 15:49 06/25/23 13:40 06/25/23 13:55 Temperature 36.5 C 36.6 C Pulse Rate 80 78 Respiratory Rate 20 18 Blood Pressure 117/60 122/60 Pulse Oximetry 98 99 Oxygen Delivery Room Air 06/25/23 14:25 06/25/23 15:25 06/25/23 19:42 Temperature 36.5 C 36.6 C Pulse Rate 82 91 Respiratory Rate 20 20 Blood Pressure 113/54 L 123/68 Pulse Oximetry 98 100 Oxygen Delivery Room Air 06/25/23 22:00 06/26/23 06:00 06/26/23 08:15 Temperature 36.5 C 36.1 C L Pulse Rate 84 81 Respiratory Rate 16 14 Blood Pressure 124/61 118/63 Pulse Oximetry 95 96 Oxygen Delivery Room Air 06/26/23 08:15 06/26/23 08:00 06/26/23 12:00 Temperature 36.7 C 36.7 C Pulse Rate 76 80 93 Respiratory Rate 18 16 Blood Pressure 128/57 L 129/60 Pulse Oximetry 96 98 Oxygen Delivery Intake/Output Intake/Output: Intake & Output 06/23/23 06/24/23 06/25/23 06/26/23 23:59 23:59 23:59 23:59 Intake Total 1610 3160 6 2006 Balance 1610 3160 4 2005 Meds/Results Medications: Active Medications Generic Name Dose Route Start Last Admin Trade Name Freq PRN Reason Stop Dose Admin Acetaminophen 650 mg 06/23/23 10:38 Acetaminophen 325 Mg Tablet PO Q4H PRN Mild Pain (1-3) or Fever Hydrocodone Bitart/Acetaminophen 1 tab 06/23/23 10:38 06/26/23 10:30 Hydrocodone/Acetaminophen (*Crx) 5-325 Mg Tablet PO 1 tab Q4H PRN Administration Pain Rated 4-6 Atorvastatin Calcium 40 mg 06/24/23 09:00 06/26/23 08:18 Atorvastatin 40 Mg Tablet PO 40 mg DAILY FRANNIE Administration Dextrose 12.5 gm 06/23/23 13:34 Dextrose 50% 25 Gm/50 Ml Syringe IV PUSH PRN PRN Hypoglycemia Protocol Empagliflozin 25 mg 06/24/23 09:00 06/26/23 08:18 Empagliflozin 25 Mg Tablet PO 25 mg DAILY FRANNIE Administration Gabapentin 600 mg 06/24/23 21:00 06/25/23 20:02 Gabapentin 300 Mg Capsule PO 600 mg HS FRANNIE Administration Glucagon 1 mg 06/23/23 13:34 Glucagon For Inj 1 Mg Vial IM PRN PRN Hypoglycemia Protocol Glucose 15 gm 06/23/23 13:34 Glucose Oral Gel 15 Gm Of Glucse In 37.5 Gm Tube PO PRN PRN Hypoglycemia Protocol Cefepime HCl 2 gm in 50 mls @ 100 mls/hr 06/23/23 21:00 06/26/23 08:53 Maxipime 2 Gm/Ns 50 Ml IVPB Infused Q12H FRANNIE Infusion Metronidazole 500 mg in 100 mls @ 100 mls/hr 06/23/23 15:00 06/26/23 12:19 Flagyl 500 Mg/Iso Soln 100 Ml IVPB 100 mls/hr Q8HR FRANNIE Administration Dextrose 1,000 mls @ 100 mls/hr 06/23/23 13:34 Dextrose 5% 1,000 Ml IVPB PRN PRN Hypoglycemia Protocol Vancomycin HCl 2,000 mg in 500 mls @ 250 mls/hr 06/26/23 13:00 06/26/23 12:24 Vancomycin 2,000 Mg/Ns 500 Ml IVPB 0 mls/hr Q8H FRANNIE Infusion
[2023-06-26 14:03] LABS: Glucose Point of Care 99 mg/dl (65-105)
--- NOTE | 2023-06-26 14:27 | P.DS_ITS ---
DS: Admitting Diagnosis Discharge Date 06/26/23 Admitting Diagnosis Osteomyelitis Diabetic infection of Foot Cellulitis left foot Diabetes Mellitus Type 2 Diabetic Peripheral Neuropathy HTN HLD Tobacco Dependence DS: Discharge Diagnosis Discharge Diagnosis (1) Osteomyelitis of second toe of left foot: Code(s): M86.9 - Osteomyelitis, unspecified Status: Acute Assessment and Plan: * As evidenced by imaging. * Left second toe * Surgery consulted and managing w/hospitalist service * Continue IV abx of Vancomycin, Cefepime and Flagyl. * Not meeting sepsis criteria * Preliminary blood cultures are negative for any growth. Continue to trend to completion * Definitive treatment for pt will depend upon what he decides to do with surgery. * Check SRINIVASAN's due to decreased posterior tibial pulse. * Continue wound orders of daily dressing with Silver gel and sterile dressing. * 06/25: OR today for amputation of left second toe. Continuing IV abx of Vanc, Cefepime and Flagyl. BCx2 preliminarily negative for any growth. SRINIVASAN's unremarkable. * 06/26: To OR yesterday with partial amputation of left second toe. Pt. has been cleared to discharge and follow up in two weeks with Dr. Plascencia. Dressing changes explained at length to pt and family in detail and written out in discharge instructions. (2) Diabetic infection of left foot: Code(s): E11.628 - Type 2 diabetes mellitus with other skin complications; L08.9 - Local infection of the skin and subcutaneous tissue, unspecified Status: Acute Assessment and Plan: * See #1 (3) Cellulitis of left foot: Code(s): L03.116 - Cellulitis of left lower limb Status: Acute Assessment and Plan: * See #1 (4) Type 2 diabetes mellitus: Code(s): E11.9 - Type 2 diabetes mellitus without complications Status: Chronic Assessment and Plan: * Hgb A1C is 6.7 * Continue SSI for tighter glucose control. * Continue Jardiance and Metformin. * Diabetic diet * Continue hypoglycemic protocol. * Glucose checks AC and HS. * 06/25: Continue current plan of care and monitoring to ensure healing of surgical wound. * 06/26: Attempted to control pt's glucose the best we could, but he remained non-compliant with therapies. He is instructed to follow a strict diabetic diet at home and to be compliant with medications. See discharge instructions given to pt. (5) Diabetic peripheral neuropathy: Code(s): E11.42 - Type 2 diabetes mellitus with diabetic polyneuropathy Status: Chronic Assessment and Plan: * Continue Gabapentin * 06/25: Continue current treatment. * 06/26: Continue current treatment on discharge. (6) Hypertension: Code(s): I10 - Essential (primary) hypertension Status: Chronic Assessment and Plan: * Stable BP. * Continue home meds of Lisinopril and trend VS. * 06/25: Stable, continue to trend * 06/26: Discharge to home with home meds. (7) Hyperlipidemia: Code(s): E78.5 - Hyperlipidemia, unspecified Status: Chronic Assessment and Plan: * Continue home medicine of Lipitor 40 mg po daily. * 06/25: Continue * 06/26: Continue home meds (8) Tobacco dependence: Code(s): F17.200 - Nicotine dependence, unspecified, uncomplicated Status: Resolved Assessment and Plan: * Pt reportedly has not smoked in 20+ years. DS: Summary Hospital Course Reason for hospitalization: Cellulitis and Osteomyelitis Left second toe Hospital Course: This 52-year-old male with
--- NOTE | 2023-06-26 14:27 | PM.DS ---
DS: Admitting Diagnosis Discharge Date 06/26/23 Admitting Diagnosis Osteomyelitis Diabetic infection of Foot Cellulitis left foot Diabetes Mellitus Type 2 Diabetic Peripheral Neuropathy HTN HLD Tobacco Dependence DS: Discharge Diagnosis Discharge Diagnosis (1) Osteomyelitis of second toe of left foot: Code(s): M86.9 - Osteomyelitis, unspecified Status: Acute Assessment and Plan: As evidenced by imaging. Left second toe Surgery consulted and managing w/hospitalist service Continue IV abx of Vancomycin, Cefepime and Flagyl. Not meeting sepsis criteria Preliminary blood cultures are negative for any growth. Continue to trend to completion Definitive treatment for pt will depend upon what he decides to do with surgery. Check SRINIVASAN's due to decreased posterior tibial pulse. Continue wound orders of daily dressing with Silver gel and sterile dressing. 06/25: OR today for amputation of left second toe. Continuing IV abx of Vanc, Cefepime and Flagyl. BCx2 preliminarily negative for any growth. SRINIVASAN's unremarkable. 06/26: To OR yesterday with partial amputation of left second toe. Pt. has been cleared to discharge and follow up in two weeks with Dr. Plascencia. Dressing changes explained at length to pt and family in detail and written out in discharge instructions. (2) Diabetic infection of left foot: Code(s): E11.628 - Type 2 diabetes mellitus with other skin complications; L08.9 - Local infection of the skin and subcutaneous tissue, unspecified Status: Acute Assessment and Plan: See #1 (3) Cellulitis of left foot: Code(s): L03.116 - Cellulitis of left lower limb Status: Acute Assessment and Plan: See #1 (4) Type 2 diabetes mellitus: Code(s): E11.9 - Type 2 diabetes mellitus without complications Status: Chronic Assessment and Plan: Hgb A1C is 6.7 Continue SSI for tighter glucose control. Continue Jardiance and Metformin. Diabetic diet Continue hypoglycemic protocol. Glucose checks AC and HS. 06/25: Continue current plan of care and monitoring to ensure healing of surgical wound. 06/26: Attempted to control pt's glucose the best we could, but he remained non-compliant with therapies. He is instructed to follow a strict diabetic diet at home and to be compliant with medications. See discharge instructions given to pt. (5) Diabetic peripheral neuropathy: Code(s): E11.42 - Type 2 diabetes mellitus with diabetic polyneuropathy Status: Chronic Assessment and Plan: Continue Gabapentin 06/25: Continue current treatment. 06/26: Continue current treatment on discharge. (6) Hypertension: Code(s): I10 - Essential (primary) hypertension Status: Chronic Assessment and Plan: Stable BP. Continue home meds of Lisinopril and trend VS. 06/25: Stable, continue to trend 06/26: Discharge to home with home meds. (7) Hyperlipidemia: Code(s): E78.5 - Hyperlipidemia, unspecified Status: Chronic Assessment and Plan: Continue home medicine of Lipitor 40 mg po daily. 06/25: Continue 06/26: Continue home meds (8) Tobacco dependence: Code(s): F17.200 - Nicotine dependence, unspecified, uncomplicated Status: Resolved Assessment and Plan: Pt reportedly has not smoked in 20+ years. DS: Summary Hospital Course Reason for hospitalization: Cellulitis and Osteomyelitis Left second toe Hospital Course: This 52-year-old male with type 2 diabetes mellitus, diabetic peripheral neuropathy, hypertension, and hyperlipidemia presented to the emergency department via private vehicle for evaluation of pain and swelling in the left foot and was subsequently admitted to the hospital for cellulitis of the left foot with osteomyelitis from 06/23-06/26. On admission he had endorsed that several days prior he removed his left 3rd toenail which sounds as though had become from the nail plate due to fu
--- NOTE | 2023-06-26 15:35 | PCPTNOTE ---
Patient refused, wanted to rest.
== END 2023-06-26 15:42 | disposition home or self-care (01) | DRG 617 ==
LOC: ANHED 09:18 → ANH3MEDSUR 11:19
PROVIDERS: Physician Assistant; Surgery; Admitting Provider Hospitalist; Emergency Provider Emergency Medicine; PCP Internal Medicine; Visit Provider Nurse Practitioner Adult Health
PROC: 0Y6S0Z3 Detachment at Left 2nd Toe, Low, Open Approach (ICD-10-PCS; principal; 2023-06-25 12:00)
DX: E11.69 Type 2 diabetes mellitus with other specified complication (principal); L97.526 Non-pressure chronic ulcer of other part of left foot with bone involvement without evidence of necrosis; M86.172 Other acute osteomyelitis, left ankle and foot; E11.621 Type 2 diabetes mellitus with foot ulcer; E11.628 Type 2 diabetes mellitus with other skin complications; E11.42 Type 2 diabetes mellitus with diabetic polyneuropathy; L03.032 Cellulitis of left toe; I10 Essential (primary) hypertension; E78.5 Hyperlipidemia, unspecified; F17.210 Nicotine dependence, cigarettes, uncomplicated
CPT/HCPCS: 36415; 73660; 80048; 80053; 80202; 82948; 83036; 83735; 85025; 85027; 85610; 85652; 85730; 86140; 87040; 88305; 88311; 93922; 96365; 96366; 96367; 96375; 97161; 99285; A9270; G0378; J0692; J1836; J2704; J3010; J3370; J7120

== ENCOUNTER 2025-04-17 13:33 | Emergency (ER) | payer OTHER, SELFPAY ==
--- NOTE | ~2025-04-17 | CT_ITS ---
EXAM/PROCEDURE: CT lumbar spine wo con HISTORY: left low back pain COMPARISON: None available. TECHNIQUE: Lumbar spine CT without contrast FINDINGS: No fracture or traumatic malalignment. No gross acute or aggressive bony or soft tissue process seen. Degenerative changes present throughout the lumbar spine involving disc spaces and posterior elements. At least borderline spinal canal stenosis present L3-4, and mild possibly moderately severe spinal canal stenosis at L4-5. No large disc herniation seen. Atherosclerotic calcifications noted in the abdominal aorta which is normal in size. IMPRESSION: Multilevel degenerative changes with possible multilevel spinal canal stenosis, most advanced at L4-5. Consider correlation with lumbar spine MRI for optimal sensitivity. Reviewed, dictated and finalized at location A. [employer] [employer]
[2025-04-17 13:42] VITALS: BP 129/70; PULSE 80; RESP 16; TEMP 36.6; O2SAT 100
[2025-04-17] MEDS: LIDOCAINE 5% PATCH 1 PATCH TRANSDERM (15:04)
[2025-04-17] MEDS: ACETAMINOPHEN 500 MG TABLET 1000 MG PO (15:04)
--- OUTSIDE RECORDS SUMMARY | 2025-04-17 15:41 | XMS_ITS | Clinical Summary ---
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
--- OUTSIDE RECORDS SUMMARY | 2025-04-17 15:41 | XMS_ITS | Encounter Summary ---
Author Organization [facility] Address [address] [place] [address] Care Team Providers Care Manager Community Name Role Phone James Gutierrez MD Primary Care Provider [phone] Encounter Details Date Type Department Care Team (Latest Contact Info) Description 02/13/2025 Results Follow-Up [email or web address] [address] [facility] [address] [place] [address] James Gutierrez MD [address] [facility] [address] [place] [address] CBC with auto differential, Comprehensive metabolic panel, Lipid panel, Additional followed-up results: 3 Social History Tobacco Use Types Packs/Day Years Used Date Smoking Tobacco: Former Cigarettes Q uit: 2002 Smokeless Tobacco: Never Alcohol Use Standard Drinks/Week Comments Yes 1 (1 standard drink = 0.6 oz pur e alcohol) rare PHQ-2 Answer Date Recorded PHQ-2 Total Score (If total score is 3 or more points, staff should administer the PHQ-9) 0 12/24/2023 PHQ-9 Answer Date Recorded PHQ-9 Total Score 0 12/24/2023 AUDIT-C Answer Date Recorded Q1: How often do you have a drink containing alc ohol? 2-4 times a month 02/13/2025 Q2: How many drinks containi ng alcohol do you have on a typical day when you are drinking? 1 or 2 02/13/2025 Frequency of Binge Drinking Not on file 01/31 Personal Safety Answer Date Recorded Have you ever been in or are you currently in a harmful physical or emotional relationship or is someone making you feel afraid or unsafe? 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 2-4 times a month 02/13/2025 7:57 AM James Mcneil MD Q2: How many drinks containing alcohol do you have on a typical day when you are drinking? 1 or 2 02/13/2025 7:57 AM James Mcneil MD * BP Location Answer Date of Assessment Author Right arm 02/13/2025 7:30 AM Satish Duncan MA documented as of this encounter Plan of Treatment Not on file documented as of this encounter Visit Diagnoses Not on filedocumented in this encounter Care Teams Manager Community Relationship Specialty Start Date End Date James Gutierrez MD PCP - General Internal Medicine 10/11/17 documented as of this encounter
--- OUTSIDE RECORDS SUMMARY | 2025-04-17 15:41 | XMS_ITS | Clinical Summary ---
Author Organization [facility] Address Formerly [facility] [place] [address] Care Team Providers Care [employer] Name Role Phone James Gutierrez MD Primary Care Provider Allergies No known active allergies Active Problems Problem Noted Date Diagnosed Date Acute pain of right knee 02/04/2024 Sprain of medial collateral ligament of right kn ee 02/04/2024 Social History Tobacco Use Types Packs/Day Years Used Date Smoking Tobacco: Never Assessed Sex and Gender Information Value Date Recorded Sex Assigned at Not on file Legal Sex Male 7:34 PM CDT Gender Identity Not on file Sexual Orientation Not on file Last Filed Vital Signs Vital Sign Reading Time Taken Comments Blood Pressure 143/80 12/12/2023 1:30 PM CDT Pulse 90 12/12/2023 1:50 PM CDT Temperature 36.8 C (98.2 F) 12/12/2023 12:29 PM CDT Respiratory Rate 15 12/12/2023 1:50 PM CDT Oxygen Saturation 94% 12/12/2023 1:50 PM CDT Inhaled Oxygen Concentration - - Weight 131.5 kg (290 lb) 12/12/2023 12:29 PM CDT Height 198.1 cm (6' 6) 12/12/2023 12:29 PM CDT Body Mass Index 33.51 12/12/2023 12:29 PM CDT Plan of Treatment Health Maintenance Due Date Last Done Comments Colorectal Cancer Screening Colonoscopy (10 Years) 1968 Annual Physical 11/28/1971 Hepatitis C 1986 Hepatitis B Vaccines (1 of 3 - 19+ 3-dose series) 11/28/1987 Pneumococcal Vaccine: 50+ Ye ars (1 of 1 - PCV) 2018 Zoster Vaccines (1 of 2) 2018 COVID-19 Vaccine (1 - 2024-2 6 season) 2025 Influenza Adult (#1) 2025 DTaP, Tdap and Td Vaccines ( 2 - Td or Tdap) 12/11/2033 12/12/2023 Hepatitis A Vaccines Aged Out No long er eligible based on patient's age to complete this topic Meningococcal B Vaccine Aged Out No l onger eligible based on patient's age to complete this topic Meningococcal Vaccine Aged Out No zaria markel eligible based on patient's age to complete this topic RSV Immunizations Under 20 Months Aged Out No longer eligible based on patient's age to complete this topic Insurance [employer] [facility] Care Teams [employer] Relationship Specialty Start Date End Date James Gutierrez MD PCP - General INTERNAL MEDICINE 12/12/23
--- OUTSIDE RECORDS SUMMARY | 2025-04-17 15:41 | XMS_ITS | Clinical Summary ---
Author Organization [facility] Address [address] [place] [phone] Care Team Providers Care Simulation Software Engineer Name Role Phone James Gutierrez MD Primary Care Provider [phone] Allergies No known active allergies Medications lancing device with lancets kitIndications:Type 2 diabetes mellitus with diabetic polyneuropathy, without long-term current use of insulin ([facility]) Test sugars once daily or as directed. 1 kit 11 2 Active blood-glucose meter miscIndications:Typ e 2 diabetes mellitus with diabetic polyneuropathy, without long-term current use of insulin (HCC) Test sugars once daily or as directed. 1 each 1 4 Active lancets (Prodigy Lancets) 28 gauge misc USE TO TEST SUGARS ONCE DAILY DIRECTED 100 each 2 4 Active blood glucose diagnostic (glucose blood) stripIndications:Ty pe 2 diabetes mellitus with diabetic polyneuropathy, without long-term current use of insulin ([facility]) Test sugars once daily or as directed. 100 each 11 4 Active omeprazole (PriLOSEC) 40 mg capsuleIndications: Gastroesophageal reflux disease, unspecified whether esophagitis present Take 1 capsule (40 mg total) by mouth 2 (two) times a day 180 capsule 3 4 Active atorvastatin (LIPITOR) 40 mg tabletIndications:H yperlipidemia, unspecified hyperlipidemia type Take 1 tablet (40 mg total) by mouth daily 90 tablet 3 5 Active gabapentin (NEURONTIN) 600 mg tabletIndications:N europathy Take 1 tablet (600 mg total) by mouth 3 (three) times a day 270 tablet 3 5 Active empagliflozin (Jardiance) 25 mg tabletIndications:T ype 2 diabetes mellitus with diabetic polyneuropathy, without long-term current use of insulin (HCC) Take 1 tablet (25 mg total) by mouth daily 90 tablet 3 5 Active lisinopriL (PRINIVIL,ZESTRIL) 20 mg tabletIndications:P rimary hypertension Take 1 tablet (20 mg total) by mouth daily 90 tablet 3 5 Active metFORMIN (GLUCOPHAGE) 1,000 mg tabletIndications:T ype 2 diabetes mellitus with diabetic polyneuropathy, without long-term current use of insulin (HCC) Take 1 tablet (1,000 mg total) by mouth 2 (two) times a day with meals 180 tablet 3 5 Active tirzepatide (Mounjaro) 15 mg/0.5 mL pen injector injectionIndication s:Type 2 diabetes mellitus with diabetic polyneuropathy, without long-term current use of insulin (HCC) Inject 0.5 mL (15 mg total) under the skin every 7 days 0.5 mL 11 5 Active Active Problems Problem Noted Date Diagnosed Date Sprain of medial collateral ligament of right kn ee 02/04/2024 Elevated liver function tests 08/19/2021 Overview (08/19/2021): Added automatically from request for surgery [id number] Hepatic steatosis 08/07/2021 Assessment & Plan (08/07/2021 3:19 PM CDT): Moderate to severe hepatic steatosis noted on ultrasound from 07/31/21. Also has slightly elevated liver tests and alk phos. Given his history of HLD, T2DM, and obesity, I anticipate he has CARVAJAL but will rule out other liver diseases with full lab evaluation. Will also obtain FibroScan today to assess degree of steatosis and if any fibrosis. Depending on results, he may need MRI/MRCP and/or liver biopsy. We discussed the cause of increased hepatic fat, i.e., inadequate metabolism of fat delivered to the liver. When associated with elevated transaminases, this is non-alcoholic steatohepatitis. This inflammation can lead to scar tissue or cirrhosis of the liver in approximately 30% of cases. Patients with cirrhosis are at risk for developing complications of portal hypertension, liver failure, , liver cancer, and/or the need for a liver transplant. Fat in the absence of elevated transaminases is non-alcoholic fatty liver disease. Routinely, this is not associated with inflammation or progressive hepatic fibrosis. The most effective treatment of fatty liver is weight loss, ideally achieved through a combination of caloric restriction and exercise. Aerobic exercise for 4 hours a week can accelerate fat metabolism and lead to improvement of liver tests. Weight loss of 5-10% of the current body weight usually leads to improvement in liver tests, liver inflammation, and a decrease in hepatic fibrosis. He will return to clinic in 6 months. Neuropathy 07/12/2015 Overview (08/13/2017): Impression: rare etoh. Start mvi. Check b12. Add gabapentin. Gastroesophageal reflux disease 04/20/2014 Overview (08/13/2017): Impression: cut back etoh. Try change to nexium if covered. Hyperlipidemia 04/20/2014 Overview (08/13/2017): Impression: good LDL 82 Type 2 diabetes mellitus wit h diabetic polyneuropathy, without long-term current use of insulin 01/04/2014 Overview (08/13/2017): Impression: add farxiga. A1c 8.8 Resolved Problems Problem Noted Date Diagnosed Date Resolved Date Edema of foot 08/12/2016 12/03/2017 Overview (08/13/2017): Impression: stat dopplers. If pos, no contraindication to anticoag. Poorly controlled diabetes mellitus 07/12/2015 12/03/2017 Overview (08/13/2017): Impression: f/u 2 wks. Notalgia 01/22/2015 03/07/2018 Overview (08/13/2017): Impression: sig better, but he has not been able to return to work due to the heavy nature of the job and they dont have light duty. OK for PT to simulate the work movts. Chest pain 01/04/2014 12/03/2017 Overview (08/13/2017): Impression: sonds noncardiac. Check CXR, d dimer, and redraw trop. Start ASA EC 81. Taught to recognize symp of cardiac origin. Encounters Date Type Department Care Team Description 02/20/2025 Orders Only [facility] [address] [place] [phone] James Gutierrez MD 02/16/2025 Orders Only [facility] [address] [place] [phone] James Gutierrez MD 02/13/2025 7:40 AM CDT Office Visit [facility] [address] [place] [phone] James Gutierrez MD Encounter for wellness examination in adult (Primary Dx); Type 2 diabetes mellitus with diabetic polyneuropathy, without long-term current use of insulin (HCC); Gastroesophageal reflux disease, unspecified whether esophagitis present; Hepatic steatosis; Hyperlipidemia, unspecified hyperlipidemia type; Primary hypertension; Neuropathy 02/13/2025 Results Follow-Up [facility] [address] [place] [phone] James Gutierrez MD CBC with auto differential, Comprehensive metabolic panel, Lipid panel, Additional followed-up results: 3 from Last 3 Months Immunizations Immunization Administration Dates Next Due Hep A, Adult 05/02/2199 Hep A, Unspecified 05/02/2199 Hep B Vaccine 05/02/2199 Influenza, Trivalent, Preservative Free, Intramu scular 05/02/2199 Tdap 05/02/2199,12/12/2023 Surgical History Surgery Date Site/Laterality Comments TOE AMPUTATION 08/02/2023 - 08/31/2023 Left Left 2nd toe Medical History Medical History Date Comments Diabetes mellitus Neuropathy in diabetes Feet Hypertension Peripheral neuropathy Feet Family History Medical History Relation Name Comments Coronary artery disease Father Fami ly history of coronary artery disease - CABG at 55 (Added by TW Conv) Diabetes Father Heart disease Father Hypertension Father Diabetes Mother Hypertension Mother Stroke Mother Relation Name Status Comments Father Mother Social History Tobacco Use Types Packs/Day Years Used Date Smoking Tobacco: Former Cigarettes Q uit: 2002 Smokeless Tobacco: Never Tobacco Cessation:Counseling Given: Not Answered Alcohol Use Standard Drinks/Week Comments Yes 1 [...] on file Legal Sex Male 5:55 AM [employer] Gender Identity Not on file Sexual Orientation Not on file 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 Not on file Not on file Last Filed Vital Signs Vital Sign Reading Time Taken Comments Blood Pressure 128/80 02/13/2025 7:30 AM CDT Pulse 74 02/13/2025 7:30 AM CDT Temperature 36.4 C (97.5 F) 12/28/2023 9:02 AM CDT Respiratory Rate 20 12/12/2023 9:00 PM CDT Oxygen Saturation 100% 02/13/2025 7:30 AM CDT Inhaled Oxygen Concentration - - Weight 114.5 kg (252 lb 8 oz) 02/13/2025 7:30 AM CDT Height 198.1 cm (6' 6) 02/13/2025 7:30 AM CDT Body Mass Index 29.18 02/13/2025 7:30 AM CDT Plan of Treatment Health Maintenance Due Date Last Done Comments Albumin Creatinine Ratio, Urine 1968 Colon Cancer Screening-Colonoscopy 1968 Dilated Eye Exam 1968 Foot Exam 1968 Pneumococcal vaccine <65 (1 of 2 - PCV) 11/28/1987 Zoster Vaccine (1 of 2) 2018 eGFR 12/11/2024 12/12/2023, 08/31, 08/07/2021 Depression Screening 12/23/2024 12/24/2023, 12/24/19 24 Hemoglobin A1C 08/14/2025 02/13/2025, 08/31, 03/05/2023, Additional history exists Influenza Vaccine (Season Ended) 2026 05/02/2199 Lipid Panel 02/13/2026 02/13/2025, 07/02, 06/13/2021, Additional history exists Regular Well Visit/Exam 18-64 02/13/2026 02/13/2025, 12/24/2023, 11/20/2022, Additional history exists Prostate Cancer Screening-PSA 02/13/2027 02/13/2025, 07/24/2022, 06/13/2021, Additional history exists DTaP/Tdap/Td Vaccine Aged Out 05/02/2199, 12/12/19 24 No longer eligible based on patient's age to complete this topic Hepatitis B Screening Completed 05/02/2199, 022 Hepatitis C Screening Completed 08/07/2021 Procedures Procedure Name Priority Date/Time Associated Diagnosis Comments SCAN - PATHOLOGY 02/20/2025 12:5 3 PM CDT GI - RESULT 02/16/2025 9:07 AM CDT PSA SCREEN Routine 02/13/2025 8:14 AM CDT Encounter for wellness examination in adult VITAMIN B12 Routine 02/13/2025 8:14 AM CDT Type 2 diabetes mellitus with diabetic polyneuropathy, without long-term current use of insulin (HCC) HEMOGLOBIN A1C Routine 02/13/2025 8:14 AM CDT Encounter for wellness examination in adult LIPID PANEL Routine 02/13/2025 8:14 AM CDT Encounter for wellness examination in adult COMPREHENSIVE METABOLIC PANEL Routine 02/13/2025 8:14 AM CDT Encounter for wellness examination in adult CBC WITH AUTO DIFFERENTIAL Routine 02/13/2025 8:14 AM CDT Encounter for wellness examination in adult SPECIMEN STATUS REPORT Routine 8:14 AM CDT URINALYSIS AND REFLEX TO MICROSCOPIC Routine 02/13/2025 8:14 AM CDT Encounter for wellness examination in adult EGFR STAT 12/12/2023 3:10 PM CDT HEPATITIS C ANTIBODY Routine 08/07/2021 2:50 PM CDT Hepatic steatosis Elevated liver function tests from Last 3 Months or Most Recently Relevant to Health Maintenance Results * SCAN - PATHOLOGY (02/20/2025 12:53 PM CDT) us James Gutierrez MD Final Res ult * GI - RESULT (02/16/2025 9:07 AM CDT) Anatomical Region Laterality Modality Other us James Gutierrez MD Final Res ult * PSA screen (02/13/2025 8:14 AM CDT) PSA, Total 1.1 0.0 - 4.0 ng/mL [facility] Blood 02/13/2025 8:14 AM CDT 02/13/2025 8:24 AM CDT us James Gutierrez MD LAB BLOOD ORDERABLES Leeann l Result [facility] [address] [phone] * CBC with auto differential (02/13/2025 8:14 AM CDT) WBC 9.5 3.5 - 10.0 K/uL [facility] RBC 4.71 4.60 - 6.20 M/uL [facility] Hemoglobin 14.5 13.9 - 17.7 g/dL [facility] Hematocrit 42.4 35.0 - 55.0 % [facility] MCV 90.0 75.0 - 100.0 fL [facility] MCH 30.80 25.00 - 35.00 pg [facility] MCHC 34.20 31.00 - 38.00 g/dL [facility] RDW 13.9 11.0 - 16.0 % [facility] Platelets 181 140 - 400 K/uL [facility] MPV 10.6 8.0 - 11.0 fL [facility] Granulocyte, Absolute 6.9 1.2 - 8.0 K/uL [facility] Lymphocyte, Absolute 1.9 0.5 - 5.0 K/uL [facility] Monocyte, Absolute 0.7 0.1 - 1.5 K/uL [facility] Granulocyte, Percentage 73.0 35.0 - 80.0 % [facility] Lymphocyte, Percentage 20.5 15.0 - 50.0 % [facility] Monocyte, Percentage 6.5 2.0 - 15.0 % [facility] Blood 02/13/2025 8:14 AM CDT 02/13/2025 8:24 AM CDT James Gutierrez MD LAB BLOOD ORDERABLES Leeann banda Result [facility] [address] [phone] * Hemoglobin A1c (02/13/2025 8:14 AM CDT) HBA1C 5.7 5.0 - 6.3 % [facility] Comment: Interpretive Comment: Normal: 4.5 - 5.6 Pre-Diabetes: 5.7 - 6.4 Diabetes is: 6.5 Ranges based on ADA Guidelines Blood 02/13/2025 8:14 AM CDT 02/13/2025 8:24 AM CDT James Gutierrez MD LAB BLOOD ORDERABLES Leeann l Result [facility] [address] [facility] [address] [place] [address] * Vitamin B12 (02/13/2025 8:14 AM CDT) Vitamin B12 670 232 - 1,245 pg/mL [facility] Blood 02/13/2025 8:14 AM CDT 02/13/2025 8:24 AM CDT James Gutierrez MD LAB BLOOD ORDERABLES Leeann l Result Performing Organization Address [facility]/ZIP Co de Phone Number [facility] [address] [facility] [address] * Lipid panel (02/13/2025 8:14 AM CDT) Triglyceride 76 0 - 150 mg/dL [facility] Cholesterol 103 0 - 200 mg/dL [facility] HDL 39 >35 mg/dL [facility] LDL-Calculated 49 mg/dL [facility] CHOL/HDL Risk Ratio 3 Ratio [facility] LDL/HDL Risk Ratio 1 Ratio [facility] Blood 02/13/2025 8:14 AM CDT 02/13/2025 8:24 AM CDT James Gutierrez MD LAB BLOOD ORDERABLES Leeann l Result [facility] [address] [facility] [address] * (ABNORMAL) Comprehensive metabolic panel (02/13/2025 8:14 AM CDT) Glucose 86 74 - 200 mg/dL [facility] BUN 6 6 - 20 mg/dL [facility] Creatinine 0.65(L) 0.70 - 1.30 mg/dL [facility] BUN/Creat Ratio 9 Ratio [facility] Bilirubin, Total 0.5 0.0 - 1.2 mg/dL [facility] AST (SGOT) 19 0 - 40 U/L [facility] ALT (SGPT) 14 10 - 50 U/L [facility] Alkaline phosphatase 143(H) 40 - 129 U/L [facility] Calcium 9.5 8.6 - 10.0 mg/dL [facility] Sodium 143 135 - 145 mEq/L [facility] Potassium 4.8 3.5 - 5.1 mEq/L [facility] Chloride 103 98 - 107 mEq/L [facility] CO2 27.4 22.0 - 32.0 mEq/L [facility] Anion Gap 13(H) 3 - 12 mEq/L [facility] Total Protein 6.3 6.0 - 8.1 g/dL [facility] Albumin 4.3 3.5 - 5.2 g/dL [facility] Globulin 2.0 g/dL [facility] Albumin/Globulin 2.1 Ratio [facility] eGFR 110.34 [facility] Blood 02/13/2025 8:14 AM CDT 02/13/2025 8:24 AM CDT aJmes Gutierrez MD LAB BLOOD ORDERABLES Leeann banda Result [facility] [address] [phone] * Specimen Status Report (02/13/2025 8:14 AM CDT) Specimen Status Report Comment [facility] - 01 Comment: No Test Indicated A urine culture transport was received with no test indicated Dear Doctor, The requisition we received for the above patient has no test indicated on the request form for one or more of the specimens submitted. The [place] Code of Federal Regulations requires a written and signed request be forwarded to the testing laboratory following the verbal order of a laboratory test. Date: ICD-9/10 Diagnosis Code(s): Physician or Authorized Designee Signature: Your signature confirms your order of the test(s) listed Required test name(s): Required test number(s): Please provide requested information and fax to to expedite testing. 02/13/2025 8:14 AM CDT 02/13/2025 Narrative [facility] - 02/14/2025 2:11 PM CDT Performed at: [address] [place] [id number] Stationary Engineer Supervisor: Eliud Krause PhD, Phone: [phone] us James Gutierrez MD LAB BLOOD ORDERABLES Leeann l Result [facility] - 01 * (ABNORMAL) Urinalysis reflex to microscopic (02/13/2025 8:14 AM CDT) Pathologist [facility] Specific [place] 1.026 1.005 - 1.030 [facility] - 01 pH, ur 6.5 5.0 - 7.5 [facility] - 01 Color, ur Yellow Yellow [facility] - 01 Appearance, ur Clear Clear [facility] - 01 Leukocyte esterase, ur Negative Negative [facility] - 01 Protein, ur Negative Negative/Tra ce [facility] - 01 Glucose, ur 3+(A) Negative [facility] - 01 Ketones, ur Negative Negative [facility] - 01 Blood, ur Negative Negative [facility] - 01 Bilirubin, ur Negative Negative [facility] - 01 Urobilinogen, quant, ur 0.2 0.2 - 1.0 mg/dL [facility] - 01 Nitrites, ur Negative Negative [facility] - 01 Urinalysis, microscopic exam Comment [facility] - 01 Comment:Microscopic not subhash cated and not performed. Urine 02/13/2025 8:14 AM CDT 02/13/2025 Narrative [facility] - 02/14/2025 2:11 PM CDT Performed at: [address] [place] [id number] Stationary Engineer Supervisor: Eliud Krause PhD, Phone: [phone] James Gutierrez MD LAB URINE ORDERABLES Edit ed Result - Final [facility] - * eGFR (12/12/2023 3:10 PM CDT) eGFR >90 >=60 mL/min/1. 73 m2 Comment: Interpretive Data Reference Interval Normal >/= 90 mL/min/1.73m2 Mildly decreased* 60 - 89 mL/min/1.73m2 Mildly to moderately decreased 45 - 59 mL/min/1.73m2 Moderately to severely decreased 30 - 44 mL/min/1.73m2 Severely decreased 15 - 29 mL/min/1.73m2 Kidney Failure < 15 mL/min/1.73m2 *Relative to young adult level Estimated glomerular filtration rate is determined by the 2020 CKD-EPI equation recommended by the National Kidney Foundation (A Unifying Approach to GFR Estimation: Recommendations of the NKF-ASK Task Force on Reassessing the Inclusion of Race in Diagnosing Kidney Disease, JASN 2020). The CKD-EPI equation should not be used for patients with unstable renal function and has not been validated in children and those over 70. Current interpretive data was last reviewed 2021. Blood 12/12/2023 3:10 PM CDT 12/12/2023 3:51 PM CDT us Ho Garcia MD LAB BLOOD ORDERABLES Fin al Result Performing Organization Address [facility] Co de Phone Number [facility] Department [place] [address] * Hepatitis C antibody (08/07/2021 2:50 PM CDT) Pathologist [facility] Hep C Ab Nonreactive Nonreactive [facility] Comment:Antibodies to HCV no t detected. Does NOT exclude the possibility of recent exposure to HCV. Blood 08/07/2021 2:50 PM CDT 08/07/2021 3:12 PM CDT Wendy Leach NP LAB MICROBIOLOGY - GENER AL ORDERABLES Edited Result - Final Performing Organization Address [facility] de Phone Number [facility] Department [place] [address] from Last 3 Months or Most Recently Relevant to Health Maintenance Insurance [employer] PPO POS [facility] [place] [address] [place] [id number] [employer] PPO POS 9 [employer] Care Teams Simulation Software Engineer Relationship Specialty Start Date End Date James Gutierrez MD PCP - General Internal Medicine 10/11/17
--- OUTSIDE RECORDS SUMMARY | 2025-04-17 16:17 | XMS_ITS | Clinical Summary ---
Author Organization [facility] Address [facility] [place] [address] Care Team Providers Care Senior Facilities Manager Name Role Phone James Gutierrez MD Primary [...] [facility] Care Teams Senior Facilities Manager Relationship Specialty Start Date End Date James Gutierrez MD PCP - General INTERNAL MEDICINE 12/12/23
--- OUTSIDE RECORDS SUMMARY | 2025-04-17 16:17 | XMS_ITS | Clinical Summary ---
Author Organization [facility] Address [address] [place] [id number] Care Team Providers Care Supervisor Extrusion Name Role Phone James Gutierrez MD Primary Care Provider [phone] Allergies No known active allergies Medications lancing device with lancets kitIndications:Type 2 diabetes mellitus with diabetic polyneuropathy, without long-term current use of insulin ([facility]) Test sugars once daily or as directed. [...] polyneuropathy, without long-term current use of insulin ([facility]) Test sugars once daily or as directed. [...] (08/19/2021): Added automatically from request for surgery [id number] Hepatic steatosis 08/07/2021 Assessment & Plan (08/07/2021 [...] Care Team Description 02/20/2025 Orders Only [facility] [address] [place] [phone] James Gutierrez MD 02/16/2025 Orders Only [facility] [address] [place] [phone] James Gutierrez MD 02/13/2025 7:40 AM CDT Office Visit [facility] [address] [place] [phone] James Gutierrez MD Encounter for wellness examination in adult (Primary Dx); Type 2 diabetes mellitus with diabetic polyneuropathy, without long-term current use of insulin (HCC); Gastroesophageal reflux disease, unspecified whether esophagitis present; Hepatic steatosis; Hyperlipidemia, unspecified hyperlipidemia type; Primary hypertension; Neuropathy 02/13/2025 Results Follow-Up [facility] [address] [place] [phone] James Gutierrez MD CBC with auto differential, [...] on file 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 Gender Identity Not on file Sexual Orientation Not on file 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 file Not [...] PSA, Total 1.1 0.0 - 4.0 ng/mL [facility] Blood 02/13/2025 8:14 AM CDT 02/13/2025 8:24 AM CDT us James Gutierrez MD LAB BLOOD ORDERABLES Leeann l Result [facility] [address] [phone] * CBC with auto differential (02/13/2025 8:14 [...] ORDERABLES Leeann banda Result [facility] [address] [phone] * Hemoglobin A1c (02/13/2025 8:14 AM CDT) HBA1C 5.7 5.0 - 6.3 % [facility] Comment: Interpretive Comment: Normal: 4.5 - 5.6 Pre-Diabetes: 5.7 - 6.4 Diabetes is: 6.5 Ranges based on ADA Guidelines Blood 02/13/2025 8:14 AM CDT 02/13/2025 8:24 AM CDT James Gutierrez MD LAB BLOOD ORDERABLES Leeann l Result [facility] [address] [facility] [address] [place] [address] * Vitamin B12 (02/13/2025 8:14 AM CDT) Vitamin B12 670 232 - 1,245 pg/mL [facility] Blood 02/13/2025 8:14 AM CDT 02/13/2025 8:24 AM CDT James Gutierrez MD LAB BLOOD ORDERABLES Leeann l Result Performing Organization Address [facility]/ZIP Co de Phone Number [facility] [address] [facility] [address] * Lipid panel (02/13/2025 8:14 AM [...] ORDERABLES Leeann l Result [facility] [address] [facility] [address] * (ABNORMAL) Comprehensive metabolic panel (02/13/2025 [...] ORDERABLES Leeann banda Result [facility] [address] [phone] * Specimen Status Report (02/13/2025 8:14 AM [...] - 02/14/2025 2:11 PM CDT Performed at: [address] [place] [id number] [employer] Laborer: Eliud Krause PhD, Phone: [phone] us James Gutierrez MD LAB BLOOD ORDERABLES Leeann l Result [facility] - 01 * (ABNORMAL) Urinalysis reflex to microscopic (02/13/2025 8:14 AM CDT) Pathologist [facility] Specific [place] 1.026 1.005 - 1.030 [facility] - 01 [...] - 02/14/2025 2:11 PM CDT Performed at: [address] [place] [id number] [employer] Laborer: Eliud Krause PhD, Phone: [phone] James Gutierrez MD LAB URINE ORDERABLES Edit ed Result - Final [facility] - * eGFR (12/12/2023 3:10 PM CDT) [...] ORDERABLES Fin al Result Performing Organization Address [facility] Co de Phone Number [facility] Department [place] [address] * Hepatitis C antibody (08/07/2021 2:50 PM CDT) Pathologist [facility] Hep C Ab Nonreactive Nonreactive [facility] Comment:Antibodies to HCV no t detected. Does NOT exclude the possibility of recent exposure to HCV. Blood 08/07/2021 2:50 PM CDT 08/07/2021 3:12 PM CDT Wendy Leach NP LAB MICROBIOLOGY - GENER AL ORDERABLES Edited Result - Final Performing Organization Address [facility] de Phone Number [facility] Department [place] [address] from Last 3 Months or Most Recently Relevant to Health Maintenance Insurance [employer] PPO POS [facility] [place] [id number] [place] [id number] [employer] PPO POS 9 [employer] Care Teams Supervisor Extrusion Relationship Specialty Start Date End Date James Gutierrez MD PCP - General Internal Medicine 10/11/17
--- OUTSIDE RECORDS SUMMARY | 2025-04-17 16:17 | XMS_ITS | Encounter Summary ---
Author Organization [facility] Address [address] [place] [address] Care Team Providers Care Pattern Painter Name Role Phone James Gutierrez MD Primary Care Provider [phone] Encounter Details Date Type Department Care Team (Latest Contact Info) Description 02/13/2025 Results Follow-Up [facility] [address] [facility] [address] [place] [address] James Gutierrez MD [address] [facility] [address] [place] [address] CBC with auto differential, Comprehensive [...] on file Legal Sex Male 5:55 AM SENIOR MANAGEMENT CONSULTANT Gender Identity Not on file Sexual Orientation Not on file 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
--- OUTSIDE RECORDS SUMMARY | 2025-04-17 16:17 | XMS_ITS | Clinical Summary ---
Author Organization [facility] Address [address] [facility] [place] [address] Care Team Providers Care Organ Pipe Voicer Name Role Phone Unavailable Primary Care Provider Unavailabl e Social History Tobacco Use Types Packs/Day Years Used Date Smoking Tobacco: Never Assessed Sex and Gender Information Value Date Recorded Sex Assigned at Not on file Legal Sex Male 8:01 PM EST Gender Identity Not on file Sexual Orientation Not on file Plan of Treatment Not on file Medical Devices Not on file Insurance [employer]
--- NOTE | 2025-04-17 16:40 | ED.BACK ---
HPI - Back Pain/Injury General Chief Complaint: Back Pain/Injury Stated Complaint: back pain Time Seen by Provider: 04/17/25 13:46 Source: patient Mode of arrival: ambulatory Limitations: no limitations History of Present Illness HPI Narrative: This is a 54-year-old male that presents to the emergency department for left-sided low back pain. Ongoing over the last week. Reports slipping and twisting his back. Denies saddle anesthesia, bowel/bladder incontinence. Related Data Home Medications ?Medication ?Instructions ?Recorded ?Confirmed ?Last Taken ?Type atorvastatin 40 mg tablet 40 mg PO DAILY 06/23/23 09/16/23 Unknown History empagliflozin 25 mg tablet 25 mg PO DAILY 06/23/23 09/16/23 Unknown History (Jardiance) gabapentin 600 mg tablet 600 mg PO HS 06/23/23 09/16/23 Unknown History lisinopril 10 mg tablet 10 mg PO DAILY 06/23/23 09/16/23 Unknown History metformin 1,000 mg tablet 1,000 mg PO BID 06/23/23 09/16/23 Unknown History omeprazole 40 mg capsule,delayed 40 mg PO AC 06/23/23 09/16/23 Unknown History release tirzepatide 15 mg/0.5 mL 15 mg subcut WEEKLY 06/23/23 09/16/23 Unknown History subcutaneous pen injector (Mounjaro) Allergies Allergy/AdvReac Type Severity Reaction Status Date / Time No Known Allergies Allergy Verified 08/17/23 10:52 Review of Systems Review of Systems: All systems reviewed & are unremarkable except as noted in HPI and below PMFSH Past Medical History Medical History Diabetic peripheral neuropathy Hyperlipidemia Hypertension Tobacco dependence Type 2 diabetes mellitus Surgical History Surgical History History of amputation of toe Partial amputation of left 2nd toe 06/25/23 Family History Family History Other Diabetes mellitus Family history of cardiovascular disease Heart disease Hypertension Social History Social History Social History: Surrogate medical decision maker: Mallory Tania, spouse. Code status: Full code. Smoking status: Current some day smoker Tobacco type: cigarettes Alcohol intake: never Substance use: never Lack of Transportation: No Lack of Food: Never True Current Housing: I Have Housing Concerned About Future Housing: No Difficulty Paying Gas/Electric Bills: No Difficulty Paying for Meds: No Currently Unemployed: No Education: Associate Degree Difficulty w/ Childcare or Family Care: No Living arrangements: with family Occupation/Education: occupation Spiritual care concerns: No Exam Narrative: GENERAL: Well-appearing, well-nourished, and in no acute distress. HEAD: Normocephalic, atraumatic. EYES: EOMI. CHEST: Clear to auscultation. No respiratory distress. No wheezes rales or rhonchi HEART: Regular rate and rhythm. No murmur heard. Normal peripheral pulses. BACK: No midline spinal tenderness EXTREMITIES: Normal range of motion. No edema. SKIN: Warm, dry, no rash. NEURO: No focal deficits. Alert and oriented x3. Normal gait PSYCH: Normal mood and affect Course Vital Signs Vital signs: Vital Signs Temperature 98 F 04/17/25 13:42 Pulse Rate 80 04/17/25 13:42 Respiratory Rate 16 04/17/25 13:42 Blood Pressure 129/70 04/17/25 13:42 Pulse Oximetry 100 04/17/25 13:42 Temperature 98 F 04/17/25 13:42 Pulse Rate 80 04/17/25 13:42 Respiratory Rate 16 04/17/25 13:42 Blood Pressure 129/70 04/17/25 13:42 Pulse Oximetry 100 04/17/25 13:42 [facility] MDM Narrative Medical decision making narrative: Patient presents emergency department for low back pain. Ongoing over the last week. He is afebrile and nontoxic. He is neurologically intact. CT lumbar spine shows multilevel degenerative changes. Patient updated his workup and agrees with plan of care. He is to follow up with primary provider. He was given warnings to return to the ER Differential Diagnosis Differential Diagnosis: muscle strain, radiculopathy, degenerative disc disease, spinal stenosis Imaging Data Radiologist's impression: ITS Impressions Lumbar Spine CT 04/17/25 14:53 IMPRESSION: Multilevel degenerative changes with possible multilevel spinal canal stenosis, most advanced at L4-5. Consider correlation with lumbar spine MRI for optimal sensitivity. Critical Care Time Critical Care Time Critical Care Time: No Discharge Plan Discharge Clinical Impression: Low back pain Qualifiers: Chronicity: acute Back pain laterality: left Sciatica presence: without sciatica Qualified Code(s): M54.50 - Low back pain, unspecified Patient Disposition: Home Condition: Stable Instructions: Acute Low Back Pain (ED) Additional Instructions: Return to the ER if you experience weakness, numbness, bowel/bladder incontinence, or any other symptoms that are concerning to you Rest, use ice/heat, take anti-inflammatories (Aleve, Ibuprofen, Naproxen, etc) or Tylenol as needed for pain as well as muscle relaxer (Flexeril) as needed for pain. Muscle relaxers can make you drowsy, do not drive if you take this Follow up with your primary care doctor Patient Language: St Helenian Prescriptions: New cyclobenzaprine 10 mg tablet 10 mg PO TID PRN (Reason: muscle spasm) Qty: 14 0RF lidocaine 5 % adhesive patch,medicated 1 patch topical DAILY Qty: 15 0RF Rx Instructions: leave on most painful area for up to 12 hrs No Action atorvastatin 40 mg tablet 40 mg PO DAILY gabapentin 600 mg tablet 600 mg PO HS omeprazole 40 mg capsule,delayed release(DR/EC) 40 mg PO AC metformin 1,000 mg tablet 1,000 mg PO BID lisinopril 10 mg tablet 10 mg PO DAILY Jardiance 25 mg tablet 25 mg PO DAILY Mounjaro 15 mg/0.5 mL pen injector 15 mg SUBCUT WEEKLY Rx Instructions: tuesdays Follow-up/Referrals: Matt,James Mejia MD [Primary Care Provider, Unknown]
[2025-04-17 16:58] VITALS: BP 114/67; PULSE 78; RESP 16; TEMP 36.4; O2SAT 97
== END 2025-04-17 17:03 | disposition home or self-care (01) ==
PROVIDERS: Emergency Provider Physician Assistant; PCP Internal Medicine
DX: S39.92XA Unspecified injury of lower back, initial encounter (principal); I10 Essential (primary) hypertension; E78.5 Hyperlipidemia, unspecified; E11.42 Type 2 diabetes mellitus with diabetic polyneuropathy; F17.210 Nicotine dependence, cigarettes, uncomplicated; Z89.422 Acquired absence of other left toe(s); Z79.84 Long term (current) use of oral hypoglycemic drugs; Z79.85 Long-term (current) use of injectable non-insulin antidiabetic drugs; Z79.899 Other long term (current) drug therapy; W01.0XXA Fall on same level from slipping, tripping and stumbling without subsequent striking against object, initial encounter; X50.9XXA Other and unspecified overexertion or strenuous movements or postures, initial encounter
CPT/HCPCS: 72131; 99284; A9270